=== PATIENT | female | born 1940 | race Caucasian/White ===

== ENCOUNTER → 2017-02-06 | Outpatient (CLI) | payer OTHER, BC ==
--- NOTE | 2017-02-06 09:48 | DIAGNOSTIC IMAGING REPORT ---
CT SCAN OF THE CHEST WITHOUT IV CONTRAST CLINICAL HISTORY: Pulmonary nodule. COMPARISON STUDY: No priors. TECHNIQUE: CT scan of the thorax was performed from the thoracic inlet to the upper abdomen. Images are reviewed in the axial, sagittal, and coronal planes. IV contrast was not administered for this examination as per the referring clinician. CT DOSE: 214.91 mGycm FINDINGS: Thyroid: Imaged portions of the thyroid gland are normal in size and attenuation. Thoracic aorta: There is advanced atherosclerotic calcification of the thoracic aorta, which is normal in caliber and demonstrates standard 3-vessel arch anatomy. Heart: The heart is mildly enlarged and there is a small pericardial effusion. The coronary arteries and aortic valve leaflets are densely calcified. The main pulmonary arteries are dilated suggesting pulmonary artery hypertension. Lungs and pleural spaces: Advanced emphysema is identified. The trachea and central airways are clear. There is segmental atelectasis in the right middle lobe. No airspace consolidation or pleural effusion is identified. No discrete pulmonary nodule is seen. Mediastinum: There is no mediastinal lymphadenopathy. Lili: Not well assessed without IV contrast. Axillae: There is no axillary lymphadenopathy. Upper abdomen: There is a small hiatal hernia. A 1.2 cm left adrenal nodule meets CT criteria for a fat-containing adenoma. There is cortical atrophy of the partially imaged kidneys. Skeletal structures: The skeletal structures are osteopenic. No lytic or blastic bony lesions are seen. There are healed bilateral rib fractures. Degenerative change and hyperkyphosis are noted in the thoracic spine. There is a severe compression deformity of T7. Mild compression deformities are seen involving T9 and T10. IMPRESSION: 1. Advanced emphysema. 2. There is segmental atelectasis identified in the right middle lobe. This is of indeterminate etiology and significance. 3. No discrete pulmonary nodule is identified as clinically queried. 4. There is no airspace consolidation typical for pneumonia or pleural effusion. 5. Cardiomegaly and small pericardial effusion. 5. Additional findings as above. Electronically signed by: Giorgio Whalen M.D. 02/06/2017 9:46 AM Dictated Date/Time: 02/06/2017 9:38 AM
== END | disposition home or self-care (01) ==
LOC: C.CTS 09:26
PROVIDERS: ATTEND Internal Medicine Pulmonary Disease
DX: R91.1 Solitary pulmonary nodule (principal); I51.7 Cardiomegaly

== ENCOUNTER → 2017-02-18 | Outpatient (CLI) | payer OTHER, BC ==
[2017-02-18 12:18] LABS: BASO % 0.2 %; BASO ABS # 0.02 K/uL (0-0.2); COMPLETE YES; EOS % 1.4 %; HEMATOCRIT 41.1 % (37-47); IG% 0.3 %; LYMPH % 9.8 %; LYMPH ABS # 0.93 K/uL (1.2-3.4); MEAN CELL VOLUME 96.5 fL (80-100); MEAN CORPUSCULAR HEMOGLOBIN 29.6 pg (25-34); MEAN CORPUSCULAR HGB CONC 30.7 g/dl (32-36); MEAN PLATELET VOLUME 10.1 fL (7.4-10.4); MONO % 5.4 %; NEUT % 82.9 %; PLATELET COUNT 285 K/uL (130-400); RED BLOOD COUNT 4.26 M/uL (4.2-5.4); WHITE BLOOD COUNT 9.48 K/uL (4.8-10.8)
[2017-02-18 13:39] LABS: ALT/SGPT 28 U/L (12-78); AST/SGOT 33 U/L (15-37); BLOOD UREA NITROGEN 36 mg/dl (7-18); BUN/CREATININE RATIO 27.9 (10-20); CALCIUM 10.2 mg/dl (8.5-10.1); CARBON DIOXIDE 30 mmol/L (21-32); CHLORIDE 102 mmol/L (98-107); CHOLESTEROL 183 mg/dl (0-200); GLUCOSE 131 mg/dl (70-99); POTASSIUM 4.3 mmol/L (3.5-5.1); SODIUM 140 mmol/L (136-145)
[2017-02-18 13:41] LABS: ALB/GLOB RATIO 1.4 (0.9-2); ALKALINE PHOSPHATASE 55 U/L (45-117); CHOLESTEROL/HDL RATIO 2.2; HDL CHOLESTEROL 85 mg/dl; LDL CHOLESTEROL CALCULATED 76 mg/dl; TRIGLYCERIDES 110 mg/dl (0-150); VERY LOW DENSITY LIPOPROT CALC 22 mg/dl
== END | disposition home or self-care (01) ==
LOC: C.LABPBG 10:26
PROVIDERS: ATTEND Nurse Practitioner Adult Health
DX: E78.5 Hyperlipidemia, unspecified (principal); I25.10 Atherosclerotic heart disease of native coronary artery without angina pectoris

== ENCOUNTER → 2017-03-04 | Outpatient (CLI) | payer OTHER, BC | END | disposition home or self-care (01) | LOC: C.LABPBG 11:36 → EDSTATUS 13:35 → C.LABPBG 13:36 → EDSTATUS 13:49 → C.LABPBG 13:49 | PROVIDERS: ATTEND Nurse Practitioner Adult Health | DX: E83.52 Hypercalcemia (principal) ==

== ENCOUNTER → 2017-05-22 | Outpatient (CLI) | payer OTHER, BC ==
[2017-05-22 11:53] LABS: ARTERIAL BLD GAS O2 SATURATION 94.8 % (90-95); ARTERIAL BLOOD GAS BASE EXCESS 3.6 mEq/L (-9-1.8); ARTERIAL BLOOD GAS HCO3 28 mmol/L (19-24); ARTERIAL BLOOD GAS PO2 72 mm/Hg (80-95); ARTERIAL BLOOD GAS pH 7.46 (7.35-7.45)
[2017-05-22 11:54] LABS: ALLEN TEST POS (POS); O2 ADMINISTRATION 3 L
== END | disposition home or self-care (01) ==
LOC: C.LAB 11:13
PROVIDERS: ATTEND Internal Medicine Pulmonary Disease
DX: J44.9 Chronic obstructive pulmonary disease, unspecified (principal)

== ENCOUNTER → 2017-07-20 | Outpatient (CLI) | payer OTHER, BC ==
[2017-07-20 17:18] LABS: BASO % 0.2 %; BASO ABS # 0.02 K/uL (0-0.2); COMPLETE YES; HEMATOCRIT 39.1 % (37-47); IG% 0.4 %; LYMPH % 7.8 %; LYMPH ABS # 0.86 K/uL (1.2-3.4); MEAN CELL VOLUME 95.8 fL (80-100); MEAN CORPUSCULAR HEMOGLOBIN 30.9 pg (25-34); MEAN CORPUSCULAR HGB CONC 32.2 g/dl (32-36); MEAN PLATELET VOLUME 10.3 fL (7.4-10.4); MONO % 5.8 %; NEUT % 84.8 %; PLATELET COUNT 272 K/uL (130-400); RED BLOOD COUNT 4.08 M/uL (4.2-5.4); WHITE BLOOD COUNT 10.98 K/uL (4.8-10.8)
[2017-07-20 17:45] LABS: ALT/SGPT 29 U/L (12-78); BLOOD UREA NITROGEN 36 mg/dl (7-18); BUN/CREATININE RATIO 29.8 (10-20); CALCIUM 9.9 mg/dl (8.5-10.1); CARBON DIOXIDE 30 mmol/L (21-32); CHLORIDE 103 mmol/L (98-107); CHOLESTEROL 190 mg/dl (0-200); CREATININE 1.21 mg/dl (0.60-1.20); GLUCOSE 106 mg/dl (70-99); POTASSIUM 4.1 mmol/L (3.5-5.1); SODIUM 141 mmol/L (136-145); TRIGLYCERIDES 133 mg/dl (0-150); VERY LOW DENSITY LIPOPROT CALC 27 mg/dl
[2017-07-20 17:56] LABS: ALB/GLOB RATIO 1.3 (0.9-2); ALKALINE PHOSPHATASE 53 U/L (45-117); AST/SGOT 33 U/L (15-37); CHOLESTEROL/HDL RATIO 2.6; HDL CHOLESTEROL 74 mg/dl; LDL CHOLESTEROL CALCULATED 89 mg/dl
[2017-07-21 07:09] LABS: ESTIMATED AVERAGE GLUCOSE 117 mg/dl; HA1C FLAG Normal (Normal)
== END | disposition home or self-care (01) ==
LOC: C.LABPBG 11:30
PROVIDERS: ATTEND Family Medicine
DX: E78.5 Hyperlipidemia, unspecified (principal); M81.0 Age-related osteoporosis without current pathological fracture; J96.10 Chronic respiratory failure, unspecified whether with hypoxia or hypercapnia; N18.9 Chronic kidney disease, unspecified; I50.42 Chronic combined systolic (congestive) and diastolic (congestive) heart failure; I25.10 Atherosclerotic heart disease of native coronary artery without angina pectoris

== ENCOUNTER → 2017-09-25 | Outpatient (CLI) | payer OTHER, BC ==
--- NOTE | 2017-09-25 13:49 | DIAGNOSTIC IMAGING REPORT ---
(CHEST) THORAX WITHOUT CT DOSE: 336.24 mGycm HISTORY: Short of breath. Atelectasis. TECHNIQUE: Multiaxial CT images of the chest were performed without contrast. A dose lowering technique was utilized adhering to the principles of ALARA. COMPARISON: Outside hospital chest CTA 04/21/2017. Chest CT 02/06/2017. FINDINGS: There is again noted severe emphysema. No pleural effusions. No pneumothorax. Trace mucoid material within the trachea and mainstem bronchi. A few partially opacified left lower lobe segmental bronchi. No change in the complete collapse/atelectasis of the right middle lobe. The right middle lobe bronchi appear to be patent. Linear density at the lingula is unchanged and favors atelectasis or scarring. No new focal lung consolidations. Old, healed left anterior rib fractures. The heart remains mildly enlarged. Trace pericardial fluid. Calcified plaque within the aortic arch. No mediastinal or hilar lymphadenopathy. The unenhanced visualized liver and spleen are unremarkable. Normal right kidney. Stable thickening of the left adrenal gland. No change in the T5, T7, T9, T10 old compression deformities. IMPRESSION: 1. Interval resolution of the left pleural effusion. 2. No change in the complete collapse of the right middle lobe. An underlying mass cannot be excluded. However, the right middle lobe bronchi appear patent. Therefore, this favors chronic collapse. Bronchoscopy could be used for further evaluation. 3. Advanced emphysema. 4. Stable cardiomegaly. Electronically signed by: Jovan Kramer M.D. 09/25/2017 1:47 PM Dictated Date/Time: 09/25/2017 1:35 PM
== END | disposition home or self-care (01) ==
LOC: C.CTS 13:09
PROVIDERS: ATTEND Internal Medicine Pulmonary Disease
DX: J98.11 Atelectasis (principal); J90 Pleural effusion, not elsewhere classified; J43.9 Emphysema, unspecified; I51.7 Cardiomegaly

== ENCOUNTER → 2017-10-20 | Outpatient (CLI) | payer OTHER, BC ==
[2017-10-20 12:13] LABS: BASO % 0.2 %; BASO ABS # 0.03 K/uL (0-0.2); EOS % 2.1 %; EOS ABS # 0.26 K/uL (0-0.5); HEMATOCRIT 42.3 % (37-47); HEMOGLOBIN 13.3 g/dL (12.0-16.0); IG# 0.06 K/uL (0.00-0.02); LYMPH % 8.9 %; LYMPH ABS # 1.11 K/uL (1.2-3.4); MEAN CELL VOLUME 96.4 fL (80-100); MEAN CORPUSCULAR HEMOGLOBIN 30.3 pg (25-34); MEAN CORPUSCULAR HGB CONC 31.4 g/dl (32-36); MEAN PLATELET VOLUME 10.5 fL (7.4-10.4); MONO % 6.3 %; MONO ABS # 0.79 K/uL (0.11-0.59); NEUT ABS # 10.29 K/uL (1.4-6.5); PLATELET COUNT 357 K/uL (130-400); RED CELL DISTRIBUTION WIDTH CV 14.2 % (11.5-14.5); RED CELL DISTRIBUTION WIDTH SD 50.5 fL (36.4-46.3); WHITE BLOOD COUNT 12.54 K/uL (4.8-10.8)
[2017-10-20 12:24] LABS: PTT PATIENT 22.8 SECONDS (21.0-31.0)
[2017-10-20 12:48] LABS: ALBUMIN 3.9 gm/dl (3.4-5.0); ALT/SGPT 30 U/L (12-78); AST/SGOT 35 U/L (15-37); BLOOD UREA NITROGEN 42 mg/dl (7-18); CALCIUM 10.5 mg/dl (8.5-10.1); CARBON DIOXIDE 32 mmol/L (21-32); GLUCOSE 141 mg/dl (70-99); POTASSIUM 4.3 mmol/L (3.5-5.1); SODIUM 135 mmol/L (136-145)
[2017-10-20 12:51] LABS: ALKALINE PHOSPHATASE 66 U/L (45-117); TOTAL PROTEIN 7.5 gm/dl (6.4-8.2)
== END | disposition home or self-care (01) ==
LOC: C.LABPBG 10:45
PROVIDERS: ATTEND Internal Medicine Pulmonary Disease
DX: J98.11 Atelectasis (principal)

== ENCOUNTER → 2017-11-04 | Outpatient (CLI) | payer OTHER, BC ==
[2017-11-04 14:11] LABS: ALBUMIN 4.4 gm/dl (3.4-5.0); BLOOD UREA NITROGEN 39 mg/dl (7-18); CALCIUM 9.8 mg/dl (8.5-10.1); CARBON DIOXIDE 28 mmol/L (21-32); CREATININE 1.52 mg/dl (0.60-1.20); GLUCOSE 113 mg/dl (70-99); PHOSPHORUS 2.7 mg/dl (2.5-4.9); POTASSIUM 3.9 mmol/L (3.5-5.1); SODIUM 137 mmol/L (136-145)
[2017-11-10 22:20] LABS: ANA SCREEN TC 249X NEGATIVE (NEGATIVE); COMPLEMENT C3 TC 44859W 146 MG/DL (90-180); COMPLEMENT C4 TC 44982E 19 MG/DL (16-47)
== END | disposition home or self-care (01) ==
LOC: C.LAB1850 11:59
PROVIDERS: ATTEND Internal Medicine Nephrology
DX: N28.9 Disorder of kidney and ureter, unspecified (principal); E83.52 Hypercalcemia

== ENCOUNTER → 2017-11-18 | Day surgery (SDC) | payer OTHER, BC ==
[2017-11-18] VITALS (7 sets, daily range): BP systolic 103–149; BP diastolic 57–67; PULSE 89–102; TEMP 36.5–37; O2SAT 93–97; Ht 157.5 cm; Wt 62.0 kg
[~2017-11-18] VITALS: Ht 157.5 cm; Wt 62.0 kg
[~2017-11-18] MED LIST: ASPI81TA28 PO; BISO5TAB3 PO; CLOP1TAB15 PO; EYE VITAMIN PO; FENTANYL CITRATE INJ 50 MCG/1 ML 2 ML VIAL IV ONE; FRS/40 PO; IBAN150T PO; ISOS30TA3 PO; LIDOCAINE 4% INH SOLN 4 ML BTL TOP ONE; LIDOCAINE HCL 2% LOCAL 50ML VIAL INSTIL ONE; LIDOCAINE VISCOUS 2% 100ML TOP ONE; MIDAZOLAM HCL 5 MG/ML 1 ML VIAL IV ONE; MULT-513 PO; PRAV20TA PO; PRED-301 PO; RANI300T2 PO; SYMIN160 INH; TIOT1SPR INH; [UNRECOGNIZED DRUG - OTHER] PO
--- NOTE | 2017-11-18 06:37 | History and Physical ---
History & Physical Date of Service Nov 18, 2017. History & Physical Here for bronchoscopic evaluation of right middle lobe atelectasis. Mariela is a 76-year-old female with past medical history significant for severe COPD (FEV1:49% on 3-4L oxygen supplementation), OBI, CAD and CHF with combined systolic and diastolic dysfunction. Electronic medical records including labs and imaging are reviewed in detail during patient's visit. She was accompanied by her niece Kathy for the visit. Review of Systems Constitutional: no fatigue, weakness, chills, fever or night sweats Head neck: no visual changes, hearing loss Respiratory: No cough, dyspnea on exertion, shortness of breath, sputum or wheezing Cardiac: No chest pain or palpitation Abdomen: No anorexia, nausea, vomiting. No constipation or diarrhea, Musculoskeletal: No joint pain, muscle pain, back pain : No dysuria, hematuria, foamy urine, incontinence, No urinary frequency Endocrine: no polyuria, excessive thirst, heat or cold intolerance Hematological: no petechiae, easy bruising Neurologic: no confusion, weakness, No memory loss, No numbness/tingling, No paralysis, No vertigo Skin: no rash , Psychiatry: no anxiety, depression. Active Problems 1. Acute renal impairment (N28.9) 2. Atelectasis (J98.11) 3. Chronic obstructive pulmonary disease (J44.9) 4. Chronic respiratory failure (J96.10) 5. Chronic rhinitis (J31.0) 6. CKD (chronic kidney disease) (N18.9) 7. COPD, severe (J44.9) 8. GERD (gastroesophageal reflux disease) (K21.9) 9. Hypercalcemia (E83.52) 10. Low back pain (M54.5) 11. Lumbar disc disease (M51.9) 12. Osteoporosis (M81.0) 13. Pulmonary emphysema (J43.9) 14. Pulmonary nodule (R91.1) 15. History of TIA (transient ischemic attack) (V12.54) (Z86.73) 16. Hyperlipidemia (272.4) (E78.5) 17. Coronary heart disease (414.00) (I25.10) 18. Chronic systolic congestive heart failure 19. Chronic diastolic congestive heart failure Past Medical History 1. History of Abnormal drug screen (R89.2) 2. History of Cat scratch (W55.03XA) 3. History of Community acquired pneumonia (J18.9) 4. H/O non-ST elevation myocardial infarction (NSTEMI) (I25.2) 5. History of pneumonia (Z87.01) 6. History of shortness of breath (Z87.898) 7. History of stroke (Z86.73) 8. Pre-operative exam (Z01.818) 9. History of Retained foreign body of foot (M79.5) Surgical History 1. History of Cath Stent Placement 2. 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 She uses wheelchair. Allergies No Known Drug Allergies Current Meds 1. Furosemide 40 MG Oral Tablet; TAKE ONE TABLET BY MOUTH EVERY DAY; 2. Levalbuterol HCl - 1.25 MG/3ML Inhalation Nebulization Solution; USE 1 UNIT DOSE 3. PredniSONE 5 MG Oral Tablet; TAKE 1 TABLET BY MOUTH DAILY 4. ProAir HFA 108 (90 Base) MCG/ACT Inhalation Aerosol Solution; INHALE 2 PUFFS 5. Spiriva HandiHaler 18 MCG Inhalation Capsule; INHALE 1 CAPSULE Daily Requested 6. Symbicort 160-4.5 MCG/ACT Inhalation Aerosol; INHALE 2 PUFFS TWICE DAILY. 7. Ipratropium [place] 0.03 % Nasal Solution; USE 2 SPRAYS IN EACH NOSTRIL 3 8. Bisoprolol Fumarate 5 MG Oral Tablet; TAKE 0.5 TABLET Daily; 9. Isosorbide Mononitrate ER 30 MG Oral Tablet Extended Release 24 Hour; TAKE 1 10. RaNITidine HCl - 300 MG Oral Tablet; TAKE 1 TABLET BY MOUTH TWICE DAILY; 11. Aspirin 81 MG TABS; TAKE 1 TABLET DAILY 12. Multi-Vitamin TABS; TAKE 1 TABLET DAILY 13. Clopidogrel Bisulfate 75 MG Oral Tablet; TAKE 1 TABLET EVERY OTHER DAY 14. Fenofibrate 145 MG Oral Tablet; TAKE 1 TABLET DAILY Requested for: 03Aug2017; 15. Pravastatin Sodium 40 MG Oral Tablet; Take 1 tablet by mouth daily; 16. Hydrocodone-Acetaminophen 5-325 MG Oral Tablet; TAKE 1 TABLET Every twelve Weight 135 lb 9 oz BMI Calculated 24.01 BSA Calculated 1.64 Systolic 118 Diastolic 88 Heart Rate 88 O2 Saturation FiO2 Height Temperature Respiration Pulse Quality Respiration Quality Physical Exam GENERAL: Elderly female, AAA x 3, pleasant, not in any distress. Wearing nasal cannula oxygen. HEENT: Atraumatic, normocephalic. NECK: Supple, no JVD, no carotid bruit appreciated. ENT: No sinus tenderness MOUTH and THROAT: Moist oral mucosa, no oral ulcer or pharyngeal erythema RESPIRATORY: Normal breathing efforts, no accessory muscle use, decreased breath sounds all over. CARDIOVASCULAR: S1, S2 normal, rate rhythm regular. ABDOMEN: Soft, nontender, positive bowel sound. MUSCULOSKELETAL: No CVA tenderness. No joint swelling, erythema or tenderness. Normal range of motion. SKIN: No skin rash EXTREMITY: No lower extremity edema NEURO: No gross focal neurological deficit, speech fluent. PSYCHIATRY: Normal mood and judgment
--- NOTE | 2017-11-18 09:12 | History & Physical Bridge Note ---
H&P Re-Evaluation Bridge Note: I have examined the patient, reviewed the History & Physical and in the interval since the performance of the History & Physical I have noted the following changes of clinical significance: No changes noted
--- NOTE | 2017-11-18 09:13 | Pre Sedation Assessment ---
Pre Sedation Assessment General Date of Sedation: Nov 18, 2017. Vital Signs Past 12 Hours Date Time Temp Pulse Resp B/P (MAP) Pulse Ox O2 Delivery O2 Flow Rate FiO2 11/18/17 08:05 36.5 102 24 149/65 (93) 96 Nasal Cannula 4 Review Cardiovascular: regular rate, rhythm, no edema, no gallop, no JVD, no murmur, normal peripheral pulses Lungs: + decreased breath sounds Pre-Sedation Airway Assessment Smoking Status: Former Smoker Hx of Sleep Apnea: No Hx of difficult intubation: No Short Thick Neck: No Thyro-mental Distance: > 3 Finger Breadths Oral Cavity: Capped Teeth, WNL Mallampati Classification: Class III ASA Classification: Class III NPO Status Date of Last Intake of Fluids: Nov 17, 2017 Time of Last Intake of Fluids: 2199 Date of Last Intake of Solids: Nov 17, 2017 Time of Last Intake of Solids: 2199 Procedure Planning Contraindications for Sedation: None Current Medications Reviewed: Yes Notes The planned sedation has been discussed with the patient. Informed Consent was obtained. I have identified the patient, determined the appropriateness of sedation and have assessed the patient immediately prior to the procedure. All medicine(s) and interventions are by my order.
--- NOTE | 2017-11-18 09:51 | Discharge Instructions ---
Discharge Instructions Date of Service Nov 18, 2017. Admission Reason for Admission: Copd, Pulmonary Nodule, Shortness Of Breath Discharge Discharge Diagnosis / Problem: chronic bronchiectasis with associated atelectasis of the right middle lobe Discharge Goals Goal(s): Diagnostic testing Activity Recommendations Activity Limitations: resume your previous activity . Current Hospital Diet Patient's current hospital diet: Discharge Diet Recommended Diet: Regular Diet Procedures Procedures Performed: Bronchoscopy, bronchial washing of the right middle lobe and conscious sedation Pending Studies Studies pending at discharge: no Medical Emergencies . Who to Call and When: Medical Emergencies: If at any time you feel your situation is an emergency, please call 911 immediately. . Non-Emergent Contact Non-Emergency issues call your: [employer] . . "Provider Documentation" section prepared by Garland Clark. . VTE Core Measure Inpt VTE Proph given/why not?: Other Anticoagulation (Plavix and aspirin)
--- NOTE | 2017-11-18 09:54 | Bronchoscopy Procedure Note ---
Bronchoscopy Procedure Note Procedure: Bronchoscopy, conscious sedation, bronchial lavage of the right middle lobe Consent: Obtained through the patient placed into the chart Pre-procedural diagnosis: Chronic bronchiectasis with associated atelectasis Post-procedural diagnosis: Chronic bronchiectasis with associated atelectasis Start time: 929 End time: 944 Total time: minutes Analgesia: 2% liquid lidocaine: Via nebulizer 4% gel lidocaine: Via right naris 2% liquid lidocaine: Via bronchoscopy Sedation: Versed IV: 2 mg Fentanyl IV: 25 g Procedure: The MideoMe video bronchoscope was used for this procedure and passed down through the right naris Right naris/posterior naris/posterior oropharynx: Anatomically within normal limits Glottis: Anatomically within normal limits Vocal cords: Proper abduction and abduction, anatomically within normal limits Subglottis/trachea/Viridiana: Anatomically within normal limits Right bronchial tree: Right mainstem bronchus: Anatomically within normal limits Right upper lobe: Anatomically within normal limits Bronchus intermedius: Anatomically within normal limits Right middle lobe: Anatomically within normal limits Right lower lobe: Anatomically within normal limits Findings: Diffuse mucous secretions appreciated throughout the right bronchial tree subsegment's Left bronchial tree: Left mainstem bronchus: Anatomically within normal limits Left upper lobe: Anatomically within normal limits Lingula: Anatomically within normal limits Left lower lobe: Anatomically within normal limits Findings: Diffuse mucous secretions appreciated in the left bronchial tree especially in the superior subsegment of the left lower lobe Bronchial alveolar lavage: Right middle lobe EBL: None Complications: None Follow-up: ASU
== END | disposition home or self-care (01) ==
LOC: C.ACU 07:19
PROVIDERS: ATTEND Internal Medicine Critical Care Medicine
DX: J47.9 Bronchiectasis, uncomplicated (principal); J98.11 Atelectasis; J44.9 Chronic obstructive pulmonary disease, unspecified; I25.10 Atherosclerotic heart disease of native coronary artery without angina pectoris; I50.40 Unspecified combined systolic (congestive) and diastolic (congestive) heart failure; K21.9 Gastro-esophageal reflux disease without esophagitis; M81.0 Age-related osteoporosis without current pathological fracture; E78.5 Hyperlipidemia, unspecified; Z86.73 Personal history of transient ischemic attack (TIA), and cerebral infarction without residual deficits; Z87.01 Personal history of pneumonia (recurrent); Z90.89 Acquired absence of other organs; Z80.0 Family history of malignant neoplasm of digestive organs; Z80.3 Family history of malignant neoplasm of breast; Z79.82 Long term (current) use of aspirin; Z99.81 Dependence on supplemental oxygen

== ENCOUNTER → 2017-12-15 | Outpatient (CLI) | payer OTHER, BC ==
[~2017-12-15] MED LIST changes: -FENTANYL CITRATE INJ 50 MCG/1 ML 2 ML VIAL IV ONE; -LIDOCAINE 4% INH SOLN 4 ML BTL TOP ONE; -LIDOCAINE HCL 2% LOCAL 50ML VIAL INSTIL ONE; -LIDOCAINE VISCOUS 2% 100ML TOP ONE; -MIDAZOLAM HCL 5 MG/ML 1 ML VIAL IV ONE
[2017-12-15 17:46] LABS: ALBUMIN 3.6 gm/dl (3.4-5.0); BLOOD UREA NITROGEN 28 mg/dl (7-18); CALCIUM 9.7 mg/dl (8.5-10.1); CARBON DIOXIDE 30 mmol/L (21-32); CREATININE 1.08 mg/dl (0.60-1.20); GLUCOSE 192 mg/dl (70-99); POTASSIUM 4.4 mmol/L (3.5-5.1); SODIUM 138 mmol/L (136-145)
[2017-12-15 17:48] LABS: PHOSPHORUS 3.7 mg/dl (2.5-4.9)
== END | disposition home or self-care (01) ==
LOC: C.LABPBG 13:32
PROVIDERS: ATTEND Internal Medicine Nephrology
DX: N28.9 Disorder of kidney and ureter, unspecified (principal)

== ENCOUNTER → 2018-01-13 | Outpatient (CLI) | payer OTHER, BC ==
--- NOTE | 2018-01-13 08:46 | DIAGNOSTIC IMAGING REPORT ---
TWO VIEW CHEST CLINICAL HISTORY: COPD exacerbation. FINDINGS: PA and lateral chest radiographs are compared to study dated 04/21/2017 and correlated with chest CT dated 09/25/2017. The heart is enlarged and there is atherosclerotic calcification of the thoracic aorta. The pulmonary vasculature is noncongested. Advanced emphysema and chronic interstitial thickening are similar to previous. No airspace consolidation or pleural effusion is identified. There is bibasilar scarring/atelectasis. There is no pneumothorax. The skeletal structures are osteopenic. Degenerative change is seen throughout the thoracic spine. Compression deformities are noted in the midthoracic region. IMPRESSION: Cardiomegaly and advanced emphysema. No acute cardiopulmonary abnormality is identified. Electronically signed by: Giorgio Whalen M.D. 01/13/2018 8:45 AM Dictated Date/Time: 01/13/2018 8:44 AM
== END | disposition home or self-care (01) ==
LOC: C.RAD1850 08:26
PROVIDERS: ATTEND Internal Medicine
DX: J44.1 Chronic obstructive pulmonary disease with (acute) exacerbation (principal); I51.7 Cardiomegaly

== ENCOUNTER → 2018-01-13 | Outpatient (CLI) | payer OTHER, BC | END | disposition home or self-care (01) | LOC: C.LAB 10:53 | PROVIDERS: ATTEND Internal Medicine Pulmonary Disease | DX: J44.1 Chronic obstructive pulmonary disease with (acute) exacerbation (principal) ==

== ENCOUNTER 2018-01-21 10:56 | Inpatient (IN) | payer OTHER, BC ==
[~2018-01-21] VITALS: Ht 157.5 cm; Wt 61.3 kg
[2018-01-21 11:31] LABS: BASO % 0.2 %; BASO ABS # 0.02 K/uL (0-0.2); EOS % 0.6 %; EOS ABS # 0.08 K/uL (0-0.5); HEMATOCRIT 38.8 % (37-47); HEMOGLOBIN 12.3 g/dL (12.0-16.0); IG# 0.03 K/uL (0.00-0.02); LYMPH ABS # 1.48 K/uL (1.2-3.4); MEAN CELL VOLUME 94.2 fL (80-100); MEAN CORPUSCULAR HEMOGLOBIN 29.9 pg (25-34); MEAN CORPUSCULAR HGB CONC 31.7 g/dl (32-36); MEAN PLATELET VOLUME 10.6 fL (7.4-10.4); MONO % 9.2 %; MONO ABS # 1.13 K/uL (0.11-0.59); NEUT % 77.8 %; NEUT ABS # 9.59 K/uL (1.4-6.5); PLATELET COUNT 203 K/uL (130-400); RED CELL DISTRIBUTION WIDTH CV 14.1 % (11.5-14.5); RED CELL DISTRIBUTION WIDTH SD 48.5 fL (36.4-46.3); WHITE BLOOD COUNT 12.33 K/uL (4.8-10.8)
--- NOTE | 2018-01-21 11:37 | DIAGNOSTIC IMAGING REPORT ---
CHEST ONE VIEW PORTABLE HISTORY: Short of breath. COMPARISON: Chest 01/13/2018. FINDINGS: Emphysema. No pneumothorax. The heart remains borderline enlarged. Left basilar linear densities have progressed. No evidence for pulmonary edema. Mild elevation of the left hemidiaphragm is again noted. IMPRESSION: 1. Emphysema. 2. A few linear densities at the left lung base. This favors atelectasis. However, a pneumonia could also have a similar appearance. Electronically signed by: Jovan Kramer M.D. 01/21/2018 11:36 AM Dictated Date/Time: 01/21/2018 11:33 AM
[2018-01-21 11:59] LABS: ALBUMIN 3.7 gm/dl (3.4-5.0); CREATININE 1.01 mg/dl (0.60-1.20); POTASSIUM 3.5 mmol/L (3.5-5.1)
[2018-01-21 12:03] LABS: TOTAL PROTEIN 6.2 gm/dl (6.4-8.2)
[2018-01-21] MEDS ORDERED: LEVAQUIN 750MG / 150ML D5W IV STA (12:12)
[2018-01-21] MEDS ORDERED: MAGNESIUM SULFATE 1GM / D5W 1 GM BAG IV STA (12:12)
[2018-01-21] MEDS ORDERED: SODIUM CHLORIDE 0.9% 500ML 500 ML IV STA (12:12)
[2018-01-21] MEDS ORDERED: ALBUT/IPRATROP 3MG/0.5MG NEB 3 ML VIAL INH ONE ×2 (12:15→15:45)
[2018-01-21 12:28] VITALS: PULSE 101; O2SAT 96
--- NOTE | 2018-01-21 12:32 | EMERGENCY ROOM VISIT NOTE ---
History Report prepared by Zbigniew: Carmelo Novoa Under the Supervision of: Dr. German Davis M.D. First contact with patient: 12:08 Chief Complaint: RESPIRATORY PROBLEMS Stated Complaint: BREATHING DIFFICULTY Nursing Triage Summary: hx copd, saw 2 weeks ago. antibiotic and prednisone. over past week feels worse, has increased home o2 from 2 to 4.5. dyspnic dry cough History of Present Illness The patient is a 77 year old female who presents to the Emergency Room with complaints of worsening shortness of breath for the past two weeks. The patient states that she additionally has a cough and some congestion. She denies any chest pain, fever, nausea, and vomiting. The patient notes that the shortness of breath is worse with exertion, and she states that she is usually on 2.5L of oxygen at home, though she has been on 4L of oxygen recently. She notes that the shortness of breath worsened significantly last night, and she was only able to sleep for around 2 hours. The patient states that when she woke up she used her inhaler, though it did not help her symptoms. She notes that two weeks she was put on antibiotics and a prednisone taper, and she states that she is supposed to finish them tomorrow. The patient notes that the medications have not helped her symptoms. Source of History: patient Onset: two weeks ago Quality: other (shortness of breath) Timing: worsening Modifying Factors (Worsening): exertion Associated Symptoms: + cough, No fevers, No chest pain, No nausea, No vomiting Note: Associated symptoms: Congestion Review of Systems See HPI for pertinent positives and negatives. A total of ten systems were reviewed and were otherwise negative. Past Medical & Surgical Medical Problems: (1) OBI (acute kidney injury) (2) CHF (congestive heart failure) (3) COPD (chronic obstructive pulmonary disease) (4) COPD exacerbation Social History Smoking Status: Former Smoker Marital Status: Occupation Status: retired Current/Historical Medications Scheduled Aspirin (Aspirin Ec), 81 MG PO DAILY Bisoprolol Fumarate (Zebeta), 2.5 MG PO DAILY Budesonide/Formoterol Fumarate (Symbicort 160/4.5 Inhaler ), 2 PUFFS INH BID Clopidogrel (Plavix), 75 MG PO Q2D Furosemide (Lasix), 60 MG PO DAILY Ibandronate Sodium (Boniva), 150 MG PO MONTHLY Isosorbide Mononitrate Ext Rel (Imdur Ext Rel), 30 MG PO QAM Multivitamins/Minerals (Mvi With Minerals), 1 TAB PO DAILY Pravastatin (Pravachol ), 40 MG PO DAILY Prednisone (Prednisone), 5 MG PO DAILY Ranitidine (Zantac), 300 MG PO BID Tiotropium Deport (Spiriva Respimat), 1 PUFF INH DAILY [reds2 eye vitamin], 1 CAP PO BID Allergies Coded Allergies: No Known Allergies (Unverified , 01/21/18) NKDA Physical Exam Vital Signs Date Time Temp Pulse Resp B/P (MAP) Pulse Ox O2 Delivery O2 Flow Rate FiO2 01/21/18 16:10 112 28 98 BiPAP/CPAP 40 01/21/18 16:10 112 98 40 01/21/18 15:32 118 24 115/86 94 Nasal Cannula 4.0 01/21/18 14:31 117 21 01/21/18 14:01 116 24 108/65 01/21/18 13:31 113 20 01/21/18 13:26 111 22 01/21/18 13:19 121/79 01/21/18 12:56 102 38 01/21/18 12:28 101 96 Nasal Cannula 5.0 01/21/18 12:26 105 19 01/21/18 12:01 134/72 01/21/18 11:56 99 28 98 01/21/18 11:26 102 21 97 01/21/18 11:14 103 01/21/18 11:02 97 Nasal Cannula 5.0 01/21/18 11:02 97 Nasal Cannula 5.0 01/21/18 11:01 143/82 01/21/18 11:01 98 Nasal Cannula 5.0 01/21/18 10:59 36.8 104 24 152/113 97 Nasal Cannula 5.0 Physical Exam GENERAL: Awake, alert, dyspneic, in no distress HENT: Normocephalic, atraumatic. Oropharynx unremarkable. EYES: Normal conjunctiva. Sclera non-icteric. NECK: Supple. No nuchal rigidity. FROM. No JVD. RESPIRATORY: Dyspneic and diminished throughout with scattered wheezes. CARDIAC: Regular rate, normal rhythm. Extremities warm and well perfused. Pulses equal. ABDOMEN: Soft, non-distended. No tenderness to palpation. No rebound or guarding. No masses. RECTAL: Deferred. MUSCULOSKELETAL: Chest examination reveals no tenderness. The back is symmetrical on inspection without obvious abnormality. There is no CVA tenderness to palpation. No joint edema. LOWER EXTREMITIES: Calves are equal size bilaterally and non-tender. No edema. No discoloration. NEURO: Normal sensorium. No sensory or motor deficits noted. SKIN: No rash or jaundice noted. Medical Decision & Procedures ER Provider Diagnostic Interpretation: Radiology results as stated below per my review and radiologist interpretation: CHEST ONE VIEW PORTABLE HISTORY: Short of breath. COMPARISON: Chest 01/13/2018. FINDINGS: Emphysema. No pneumothorax. The heart remains borderline enlarged. Left basilar linear densities have progressed. No evidence for pulmonary edema. Mild elevation of the left hemidiaphragm is again noted. IMPRESSION: 1. Emphysema. 2. A few linear densities at the left lung base. This favors atelectasis. However, a pneumonia could also have a similar appearance. Electronically signed by: Jovan Kramer M.D. 01/21/2018 11:36 AM Dictated Date/Time: 01/21/2018 11:33 AM Laboratory Results 01/21/18 10:20 Red Blood Count 4.12, Mean Corpuscular Volume 94.2, Mean Corpuscular Hemoglobin 29.9, Mean Corpuscular Hemoglobin Concent 31.7, Mean Platelet Volume 10.6, Neutrophils (%) (Auto) 77.8, Lymphocytes (%) (Auto) 12.0, Monocytes (%) (Auto) 9.2, Eosinophils (%) (Auto) 0.6, Basophils (%) (Auto) 0.2, Neutrophils # (Auto) 9.59, Lymphocytes # (Auto) 1.48, Monocytes # (Auto) 1.13, Eosinophils # (Auto) 0.08, Basophils # (Auto) 0.02 01/21/18 10:20 Test 01/21/18 10:20 01/21/18 11:24 01/21/18 13:03 01/21/18 14:10 White Blood Count 12.33 K/uL (4.8-10.8) Red Blood Count 4.12 M/uL (4.2-5.4) Hemoglobin 12.3 g/dL (12.0-16.0) Hematocrit 38.8 % (37-47) Mean Corpuscular Volume 94.2 fL (80-100) Mean Corpuscular Hemoglobin 29.9 pg (25-34) Mean Corpuscular Hemoglobin Concent 31.7 g/dl (32-36) Platelet Count 203 K/uL (130-400) Mean Platelet Volume 10.6 fL (7.4-10.4) Neutrophils (%) (Auto) 77.8 % Lymphocytes (%) (Auto) 12.0 % Monocytes (%) (Auto) 9.2 % Eosinophils (%) (Auto) 0.6 % Basophils (%) (Auto) 0.2 % Neutrophils # (Auto) 9.59 K/uL (1.4-6.5) Lymphocytes # (Auto) 1.48 K/uL (1.2-3.4) Monocytes # (Auto) 1.13 K/uL (0.11-0.59) Eosinophils # (Auto) 0.08 K/uL (0-0.5) Basophils # (Auto) 0.02 K/uL (0-0.2) RDW Standard Deviation 48.5 fL (36.4-46.3) RDW Coefficient of Variation 14.1 % (11.5-14.5) Immature Granulocyte % (Auto) 0.2 % Immature Granulocyte # (Auto) 0.03 K/uL (0.00-0.02) Prothrombin Time 10.5 SECONDS (9.0-12.0) Prothromb Time International Ratio 1.0 (0.9-1.1) Activated Partial Thromboplast Time 22.0 SECONDS (21.0-31.0) Partial Thromboplastin Ratio 0.8 Anion Gap 9.0 mmol/L (3-11) Est Creatinine Clear Calc Drug Dose 40.4 ml/min Estimated GFR () 61.3 Estimated GFR (Non- 52.9 BUN/Creatinine Ratio 30.6 (10-20) Calcium Level 9.0 mg/dl (8.5-10.1) Total Bilirubin 0.9 mg/dl (0.2-1) Aspartate Amino Transf (AST/SGOT) 30 U/L (15-37) Alanine Aminotransferase (ALT/SGPT) 40 U/L (12-78) Alkaline Phosphatase 64 U/L (45-117) Total Protein 6.2 gm/dl (6.4-8.2) Albumin 3.7 gm/dl (3.4-5.0) Globulin 2.5 gm/dl (2.5-4.0) Albumin/Globulin Ratio 1.5 (0.9-2) Bedside Troponin I 0.030 ng/ml (0-0.045) Venous Blood pH 7.41 (7.36-7.41) Venous Blood Partial Pressure CO2 45 mmHg (38.0-50.0) Venous Blood Partial Pressure O2 46 mmHg Venous Blood HCO3 28 mmol/L Venous Blood Oxygen Saturation 78.8 % Venous Blood Base Excess 3.2 mEq/L Lactic Acid Level 1.1 mmol/L (0.4-2.0) Pro-B-Type Natriuretic Peptide 8145 pg/ml (0-1800) Influenza Type A (RT-PCR) Neg for Influ A (NEG) Influenza Type B (RT-PCR) Neg for Influ B (NEG) Test 01/21/18 15:05 D-Dimer 300 ug/L FEU (0-500) Laboratory results reviewed by me Medications Administered Medications (Trade) Dose Ordered Sig/Marialuisa Route Start Time Stop Time Status Last Admin Dose Admin Albuterol/ Ipratropium (Duoneb) 12 ml ONE ONCE INH 01/21/18 12:15 01/21/18 12:18 DC 01/21/18 12:28 12 ML Magnesium Sulfate (Magnesium Sulfate 1gm / D5W) 2 gm NOW STAT IV 01/21/18 12:12 01/21/18 12:18 DC 01/21/18 12:34 2 GM Sodium Chloride 500 ml @ 999 mls/hr Q31M STAT IV 01/21/18 12:12 01/21/18 12:42 DC 01/21/18 12:35 999 MLS/HR Levofloxacin (Levaquin / D5W) 750 mg NOW STAT IV 01/21/18 12:12 01/21/18 12:18 DC 01/21/18 13:16 750 MG Albuterol/ Ipratropium (Duoneb) 12 ml ONE ONCE INH 01/21/18 15:45 01/21/18 15:46 DC 01/21/18 16:10 12 ML ECG Per My Interpretation Indication: SOB/dyspnea Rate (beats per minute): 100 Rhythm: normal sinus Findings: LBBB, no acute ischemic change, left axis deviation, other (No Sgarbossa Criteria) ED Course 1208: The patient was evaluated in room C3. A complete history and physical exam was performed. 1437: I discussed the patient's case with Dr. Rosales, Pulmonology, and he said that the patient has been worsening for a while. He thinks that it is worth dong a CTA, and the patient had one earlier in the year that was negative, but if we cannot convince her to stay in the hospital, then she should follow up closely as an outpatient. 1549: I discussed the patient with Dr. Sanchez - [facility] Hospitalist - he will evaluate the patient for further treatment. Medical Decision I reviewed the patient's past medical history, medications, and the nursing notes as described above. Differential diagnosis: Etiologies such as infections, reactive airway disease, pneumonia, pneumothorax , COPD, CHF, cardiac ischemia, pulmonary embolism, musculoskeletal, gastrointestinal, as well as others were entertained. The patient is a 77 y/o woman with a pmhx of COPD/emphysema on home O2 2-3L NC who presents to the emergency department with worsening sob over the past 2 weeks with increased O2 requirement to 4-5L per HPI. Patient given Solumedrol and duobneb by EMS. On arrival the patient appears moderately dyspneic but in NAD, AF. Tachypneic to 30s and VS otherwise stable. EKG with LBBB with no Sgarbossa criteria. No prior EKGs for comparion. CXR with question atelectasis vs infiltrate. WBC 12 albeit in the setting of recent steroid taper. Given Levaquin for PNA. Trop negative. BNP 8000 although no evidence of pulmonary edema. 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 D-dimer negative. Patient with persistent dyspnea despite continuous nebs. Thus, repeat continuous duoneb and placed on Bipap for WOB. Patient agreeable for admission. Case d/w Dr. Sanchez, [facility] hospitalist, who will evaluate the patient for admission. Medication Reconcilliation Current Medication List: was personally reviewed by me Blood Pressure Screening Patient's blood pressure: Normal blood pressure Consults Time Called: 1424 Consulting Physician: Dr. Rosales, Pulmonology Returned Call: [phone] I discussed the patient's case with Dr. Rosales, Pulmonology, and he said that the patient has been worsening for a while. He thinks that it is worth dong a CTA, and the patient had one earlier in the year that was negative, but if we cannot convince her to stay in the hospital, then she should follow up closely as an outpatient. Additional Consults: Time Called: 1548 Consulted Physician: Dr. Daniel [facility] Hospitalist Returned Call: [phone] Additional Comments: I discussed the patient with Dr. Daniel [facility] Hospitalist - He will evaluate the patient for further treatment. Impression Primary Impression: COPD exacerbation Additional Impression: Pneumonia Scribe Attestation The scribe's documentation has been prepared under my direction and personally reviewed by me in its entirety. I confirm that the note above accurately reflects all work, treatment, procedures, and medical decision making performed by me. Departure Information Dispostion Being Evaluated By Hospitalist Referrals Marly Boateng DO (PCP) Patient Instructions My [facility] Problem Qualifiers
[2018-01-21 15:12] LABS: INFLUENZA A PCR Neg for Influ A (NEG); INFLUENZA B PCR Neg for Influ B (NEG)
[2018-01-21 16:10] VITALS: PULSE 112; O2SAT 98
[2018-01-21] MEDS ORDERED: ALUMINUM/MAGNESIUM/SIMETH (MAALOX MAX) 30 ML UDC PO PRN (16:15)
[2018-01-21] MEDS ORDERED: ONDANSETRON INJ 2 MG/ML 2 ML VIAL IV PRN (16:15)
[2018-01-21] MEDS ORDERED: NITROGLYCERIN 0.4 MG SL PER TAB CHARGE SL PRN (16:15)
[2018-01-21] MEDS ORDERED: ALBUTEROL 0.083% NEBU SOLN 3 ML VIAL INH PRN (16:15)
[2018-01-21] MEDS ORDERED: POLYETHYLENE (MIRALAX) 17 GM PACK PO PRN (16:15)
[2018-01-21] MEDS ORDERED: MAGNESIUM HYDROXIDE SUSP 30 ML UDC PO PRN (16:15)
[2018-01-21] MEDS ORDERED: MoRPHine SULFATE 2 MG/ML CARP IV PRN (16:15)
[2018-01-21] MEDS ORDERED: ACETAMINOPHEN 325 MG TAB PO PRN (16:15)
--- NOTE | 2018-01-21 17:23 | History and Physical ---
History & Physical Date & Time of Service: Jan 21, 2018 at 16:58 Chief Complaint: Breathing Difficulty Primary Care Physician: Marly Boateng DO History of Present Illness Source: patient, family, hospital records 77 y/o F CAD, combined CHF, TIA, advanced COPD - 3L 02. The pt has been progressively SOB x 2 weeks with gradually increasing 02 requirements. She presented to the ER in mild respiratory distress and initially required BiPAP to correct hypoxia. She denies an acute productive cough, chest pain, orthopnea. She is SOB with minimal exertion. 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 3) Osteoporosis 4) History of TIA 5) History of OBI 6) Advanced COPD - FEV1 49% Surgical: Tonsillectomy Family History Noncontributory Social History Smoking Status: Former Smoker Marital Status: Occupational Status: retired Allergies Coded Allergies: No Known Allergies (Unverified , 01/21/18) NKDA Home Medications Scheduled Aspirin (Aspirin Ec), 81 MG PO DAILY Bisoprolol Fumarate (Zebeta), 2.5 MG PO DAILY Budesonide/Formoterol Fumarate (Symbicort 160/4.5 Inhaler ), 2 PUFFS INH BID Clopidogrel (Plavix), 75 MG PO Q2D Furosemide (Lasix), 60 MG PO DAILY Ibandronate Sodium (Boniva), 150 MG PO MONTHLY Isosorbide Mononitrate Ext Rel (Imdur Ext Rel), 30 MG PO QAM Multivitamins/Minerals (Mvi With Minerals), 1 TAB PO DAILY Pravastatin (Pravachol ), 40 MG PO DAILY Prednisone (Prednisone), 5 MG PO DAILY Ranitidine (Zantac), 300 MG PO BID Tiotropium [place] (Spiriva Respimat), 1 PUFF INH DAILY [reds2 eye vitamin], 1 CAP PO BID Review of Systems Constitutional: No fever, No chills, No sweats Eyes: No worsening of vision ENT: No hearing loss, No nasal symptoms Respiratory: + cough, + shortness of breath, + dyspnea on exertion Cardiovascular: No chest pain, No orthopnea, No PND Abdomen: No pain, No nausea, No vomiting Musculoskeletal: No joint pain Genitourinary - Female: No dysuria, No urinary frequency Neurologic: No memory loss, No weakness Psychiatric: No depression symptoms Endocrine: No fatigue Hematologic / Lymphatic: No abnormal bleeding/bruising Integumentary: No rash Physical Exam Vital Signs Date Time Temp Pulse Resp B/P (MAP) Pulse Ox O2 Delivery O2 Flow Rate FiO2 01/21/18 16:10 112 28 98 BiPAP/CPAP 40 01/21/18 16:10 112 98 40 01/21/18 15:32 118 24 115/86 94 Nasal Cannula 4.0 01/21/18 14:31 117 21 01/21/18 14:01 116 24 108/65 01/21/18 13:31 113 20 01/21/18 13:26 111 22 01/21/18 13:19 121/79 01/21/18 12:56 102 38 01/21/18 12:28 101 96 Nasal Cannula 5.0 01/21/18 12:26 105 19 01/21/18 12:01 134/72 01/21/18 11:56 99 28 98 01/21/18 11:26 102 21 97 01/21/18 11:14 103 01/21/18 11:02 97 Nasal Cannula 5.0 01/21/18 11:02 97 Nasal Cannula 5.0 01/21/18 11:01 143/82 01/21/18 11:01 98 Nasal Cannula 5.0 01/21/18 10:59 36.8 104 24 152/113 97 Nasal Cannula 5.0 General Appearance: WD/WN, no apparent distress, + pertinent finding (Elderly female - on BiPAP - appears comfortable and completing sentences) Head: normocephalic ENT: normal ENT inspection Neck: supple, no JVD Respiratory/Chest: chest non-tender, + pertinent finding (Very poor air movement - rediced air at bases - no crackles or wheezing) Cardiovascular: no murmur, + tachycardia Abdomen/GI: normal bowel sounds, non tender, soft Back: normal inspection, no CVA tenderness Extremities/Musculoskelatal: normal inspection Neurologic/Psych: gis professor II-XII nml as tested, no motor/sensory deficits, alert, oriented x 3 Skin: normal color Diagnostics Laboratory Results Results Past 24 Hours Test 01/21/18 10:20 01/21/18 11:24 01/21/18 13:03 01/21/18 14:10 Range/Units White Blood Count 12.33 4.8-10.8 K/uL Red Blood Count 4.12 4.2-5.4 M/uL Hemoglobin 12.3 12.0-16.0 g/dL Hematocrit 38.8 37-47 % Mean Corpuscular Volume 94.2 80-100 fL Mean Corpuscular Hemoglobin 29.9 25-34 pg Mean Corpuscular Hemoglobin Concent 31.7 32-36 g/dl Platelet Count 203 130-400 K/uL Mean Platelet Volume 10.6 7.4-10.4 fL Neutrophils (%) (Auto) 77.8 % Lymphocytes (%) (Auto) 12.0 % Monocytes (%) (Auto) 9.2 % Eosinophils (%) (Auto) 0.6 % Basophils (%) (Auto) 0.2 % Neutrophils # (Auto) 9.59 1.4-6.5 K/uL Lymphocytes # (Auto) 1.48 1.2-3.4 K/uL Monocytes # (Auto) 1.13 0.11-0.59 K/uL Eosinophils # (Auto) 0.08 0-0.5 K/uL Basophils # (Auto) 0.02 0-0.2 K/uL RDW Standard Deviation 48.5 36.4-46.3 fL RDW Coefficient of Variation 14.1 11.5-14.5 % Immature Granulocyte % (Auto) 0.2 % Immature Granulocyte # (Auto) 0.03 0.00-0.02 K/uL Prothrombin Time 10.5 9.0-12.0 SECONDS Prothromb Time International Ratio 1.0 0.9-1.1 Activated Partial Thromboplast Time 22.0 21.0-31.0 SECONDS Partial Thromboplastin Ratio 0.8 Sodium Level 139 136-145 mmol/L Potassium Level 3.5 3.5-5.1 mmol/L Chloride Level 103 98-107 mmol/L Carbon Dioxide Level 27 21-32 mmol/L Anion Gap 9.0 3-11 mmol/L Blood Urea Nitrogen 31 7-18 mg/dl Creatinine 1.01 0.60-1.20 mg/dl Est Creatinine Clear Calc Drug Dose 40.4 ml/min Estimated GFR () 61.3 Estimated GFR (Non- 52.9 BUN/Creatinine Ratio 30.6 10-20 Random Glucose 132 70-99 mg/dl Calcium Level 9.0 8.5-10.1 mg/dl Total Bilirubin 0.9 0.2-1 mg/dl Aspartate Amino Transf (AST/SGOT) 30 15-37 U/L Alanine Aminotransferase (ALT/SGPT) 40 12-78 U/L Alkaline Phosphatase 64 45-117 U/L Total Protein 6.2 6.4-8.2 gm/dl Albumin 3.7 3.4-5.0 gm/dl Globulin 2.5 2.5-4.0 gm/dl Albumin/Globulin Ratio 1.5 0.9-2 Bedside Troponin I 0.030 0-0.045 ng/ml Venous Blood pH 7.41 7.36-7.41 Venous Blood Partial Pressure CO2 45 38.0-50.0 mmHg Venous Blood Partial Pressure O2 46 mmHg Venous Blood HCO3 28 mmol/L Venous Blood Oxygen Saturation 78.8 % Venous Blood Base Excess 3.2 mEq/L Lactic Acid Level 1.1 0.4-2.0 mmol/L Pro-B-Type Natriuretic Peptide 8145 0-1800 pg/ml Influenza Type A (RT-PCR) Neg for Influ A NEG Influenza Type B (RT-PCR) Neg for Influ B NEG Test 01/21/18 15:05 Range/Units D-Dimer 300 0-500 ug/L FEU Microbiology Results 01/21/18 Blood Culture, Received Pending 01/21/18 Blood Culture, Received Pending Diagnostic Radiology CXR: 1. Emphysema. 2. A few linear densities at the left lung base. This favors atelectasis. However, a pneumonia could also have a similar appearance. EKG Sinus, L axis, L bundle Impression Assessment and Plan 77 y/o F CAD, combined CHF, TIA, advanced COPD - 3L 02. The pt has been progressively SOB x 2 weeks with gradually increasing 02 requirements. She presented to the ER in mild respiratory distress and initially required BiPAP to correct hypoxia. She denies an acute productive cough, chest pain, orthopnea. She is SOB with minimal exertion. 1) COPD exacerbation - questionable PNM on CXR - less likely clinically - pt placed on Abx, nebs, steroids, 02 - BiPAP as needed. She is pending a Ddimer - we will consider a CTA if (+). 2) CHF - no current evidence of volume overload, Cont Lasix, statin, Imdur. 3) CAD - EKG shows a LBBB - there is none for comparison and this is not mentioned in the record. This may be rate related. She does not c/o CP and initial trop is negative. She is admitted to telemetry regardless and we will trend her trop. Cont ASA, Plavix, Statin, Imdur. 4) History of TIA - Cont ASA, Plavix and Statin Full code - Lovenox prophylaxis Total time for this admit including review of labs, meds, imaging records - discussion with pt and ER attending - 39 min Resuscitation Status VTE Prophylaxis Will order VTE Prophylaxis: Yes
[2018-01-21 18:16] VITALS: BP 148/71; PULSE 132; TEMP 36.5; O2SAT 95; Ht 157.5 cm; Wt 61.3 kg
[2018-01-21] MEDS: METHYLPREDNISOLONE IV 40 MG in SYRINGE 0 ML IV SCH (18:47)
[2018-01-21 19:18] VITALS: PULSE 121; O2SAT 96
[2018-01-21] MEDS: ALBUT/IPRATROP 3MG/0.5MG NEB 3 ML VIAL INH SCH (19:18)
[2018-01-21] MEDS: RANITIDINE HCL 150 MG TAB PO SCH (20:21)
[2018-01-21] MEDS: ENOXAPARIN 40 MG/0.4 ML SYR SC SCH (20:21)
[2018-01-22] VITALS (13 sets, daily range): BP systolic 118–136; BP diastolic 65–84; PULSE 89–115; TEMP 36.3–37; O2SAT 95–98
[2018-01-22] MEDS: METHYLPREDNISOLONE IV 40 MG in SYRINGE 0 ML IV SCH ×4 (01:04→19:19)
[2018-01-22] MEDS: ALBUT/IPRATROP 3MG/0.5MG NEB 3 ML VIAL INH SCH ×4 (02:10→19:30)
[2018-01-22 05:04] LABS: HEMATOCRIT 35.8 % (37-47); HEMOGLOBIN 11.3 g/dL (12.0-16.0); MEAN CELL VOLUME 93.2 fL (80-100); MEAN CORPUSCULAR HEMOGLOBIN 29.4 pg (25-34); MEAN CORPUSCULAR HGB CONC 31.6 g/dl (32-36); MEAN PLATELET VOLUME 10.4 fL (7.4-10.4); PLATELET COUNT 155 K/uL (130-400); RED CELL DISTRIBUTION WIDTH SD 48.1 fL (36.4-46.3); WHITE BLOOD COUNT 5.36 K/uL (4.8-10.8)
[2018-01-22 05:27] LABS: CALCIUM 8.9 mg/dl (8.5-10.1); CREATININE 1.06 mg/dl (0.60-1.20); POTASSIUM 4.2 mmol/L (3.5-5.1)
--- NOTE | 2018-01-22 08:10 | Clinical Documentation Query ---
CLINICAL DOCUMENTATION QUERY Dr. FONTENOT, In your clinical opinion is this patient being managed for: (x ) Acute and chronic hypoxic respiratory failure ( ) Chronic hypoxic respiratory failure ( ) Not Agree ( ) Other explanation of clinical findings (Please Explain) ( ) Unable to determine (Please Define) ( ) Need to Discuss The medical record reflects the following clinical findings, treatment, and risk factors. Clinical Indicators: 77 yo female presenting with increasing dyspnea and O2 requirements over the past 2 weeks. EMS administered solumedrol and duonebs as well as increased O2 support. Pt had increased her 2-3 L O2 support to 4-5 L over this 2 week period. Presented dyspneic with RR of 24-38 requiring BIPAP short term. Treatment: IV levaquin, O2 support/BIPAP, duonebs, tele, IV solumedrol Risk Factors: advanced COPD, former smoker, chronic systolic and diastolic CHF Please clarify and document your clinical opinion in the progress notes and discharge summary. Terms such as "probable", "suspected", "likely", "questionable", "possible", or "still to be ruled out" are acceptable. IF IN AGREEMENT, YOU MUST DOCUMENT ABOVE DIAGNOSTIC STATEMENT IN DAILY PROGRESS NOTES AND DISCHARGE SUMMARY. This document is not part of the patient's record. Thank You, Lucinda Denny RN [phone]
[2018-01-22] MEDS: ASPIRIN 81 MG ECTAB PO SCH (08:11)
[2018-01-22] MEDS: ISOSORBIDE MONONITRATE 30 MG TABCR PO SCH (08:11)
[2018-01-22] MEDS: PRAVASTATIN SOD 40 MG TAB PO SCH (08:11)
[2018-01-22] MEDS: RANITIDINE HCL 150 MG TAB PO SCH ×2 (08:11→21:10)
[2018-01-22] MEDS: CLOPIDOGREL BISULFATE 75 MG TAB PO SCH ×2 (08:11→08:16)
[2018-01-22] MEDS: FUROSEMIDE 20 MG TAB PO SCH (08:12)
[2018-01-22] MEDS ORDERED: METOPROLOL TARTRATE 25 MG TAB PO SCH (09:00)
[2018-01-22] MEDS ORDERED: LORAZEPAM 0.5 MG TAB PO PRN (10:30)
[2018-01-22] MEDS ORDERED: NURSING VERBAL MED ORDER ONE ×2 (10:30→18:45)
[2018-01-22] MEDS: LEVOFLOXACIN / D5W 250 MG in PREMIXED IN D5W 50 ML IV SCH (12:09)
--- NOTE | 2018-01-22 14:27 | Progress Note ---
Subjective Date of Service: Jan 22, 2018. Subjective Pt evaluation today including: conversation w/ patient, conversation w/ family , physical exam, lab review, review of inpatient medication list Pain: no pain PO Intake: adequate Voiding: no voiding problems breathing is slightly improved per patient no real cough, had more of a cough yesterday productive of sputum she requested that her Plavix be every other day as it is at home concerned about not getting her Symbicort and Spiriva, explained that Duoneb provides same treatment reviewed labs, CBC and BMP stable, normal Problem List Medical Problems: (1) Pneumonia Status: Acute Review of Systems Constitutional: + weakness, + fatigue Respiratory: + cough, + shortness of breath, + dyspnea on exertion Neurologic: + weakness All Other Systems: Reviewed and Negative Medications Current Inpatient Medications Medications (Trade) Dose Ordered Sig/Marialuisa Route Start Time Stop Time Status Last Admin Dose Admin Aspirin (Ecotrin Tab) 81 mg DAILY PO 01/22/18 09:00 02/21/18 08:59 01/22/18 08:11 81 MG Furosemide (Lasix Tab) 60 mg DAILY PO 01/22/18 09:00 02/21/18 08:59 01/22/18 08:12 60 MG Isosorbide Mononitrate (Imdur Ext Rel Tab) 30 mg QAM PO 01/22/18 09:00 02/21/18 08:59 01/22/18 08:11 30 MG Pravastatin Sodium (Pravachol Tab) 40 mg DAILY PO 01/22/18 09:00 02/21/18 08:59 01/22/18 08:11 40 MG Prednisone (PredniSONE TAB) 5 mg DAILY PO 01/22/18 09:00 02/21/18 08:59 Metoprolol Tartrate (Lopressor Tab) 25 mg BID PO 01/22/18 09:00 02/21/18 08:59 01/22/18 08:11 25 MG Ranitidine HCl (zANTac TAB) 300 mg BID PO 01/21/18 21:00 02/20/18 20:59 01/22/18 08:11 300 MG Enoxaparin Sodium (Lovenox Inj) 40 mg Q24H SC 01/21/18 21:00 02/20/18 20:59 01/21/18 20:21 40 MG Acetaminophen (Tylenol Tab) 650 mg Q4H PRN PO 01/21/18 16:15 02/20/18 16:14 Al Hydrox/Mg Hydrox/Simethicone (Maalox Max Susp) 15 ml Q4H PRN PO 01/21/18 16:15 02/20/18 16:14 Magnesium Hydroxide (Milk Of Magnesia Susp) 30 ml Q12H PRN PO 01/21/18 16:15 02/20/18 16:14 Ondansetron HCl (Zofran Inj) 4 mg Q6H PRN IV 01/21/18 16:15 02/20/18 16:14 Nitroglycerin (Nitrostat Tab) 0.4 mg UD PRN SL 01/21/18 16:15 02/20/18 16:14 Morphine Sulfate (MoRPHine SULFATE INJ) 2 mg Q30M PRN IV 01/21/18 16:15 02/04/18 16:14 Polyethylene (Miralax Powder Packet) 17 gm DAILY PRN PO 01/21/18 16:15 02/20/18 16:14 Albuterol/ Ipratropium (Duoneb) 3 ml Q6R INH 01/21/18 21:00 02/20/18 20:59 01/22/18 07:26 3 ML Albuterol Sulfate (Ventolin 0.083% 2.5MG/3ML Neb) 2.5 mg Q4H PRN INH 01/21/18 16:15 02/20/18 16:14 Levofloxacin 250 mg/Prmx 50 ml @ 100 mls/hr Q24H IV 01/22/18 11:00 01/27/18 11:29 01/22/18 12:09 100 MLS/HR Methylprednisolone Sodium Succinate 40 mg/Syringe 0.64 ml @ 1.5 mls/min Q6H IV 01/21/18 19:00 02/20/18 16:14 01/22/18 12:09 1.5 MLS/MIN Lorazepam (Ativan Tab) 0.5 mg HS PRN PO 01/22/18 10:30 02/21/18 10:29 Clopidogrel Bisulfate (plAVix TAB) 75 mg Q2D@0900 PO 01/23/18 09:00 02/22/18 08:59 Objective Vital Signs Date Time Temp Pulse Resp B/P (MAP) Pulse Ox O2 Delivery O2 Flow Rate FiO2 01/22/18 12:00 Nasal Cannula 4.0 Humidified Air 01/22/18 10:31 36.3 89 21 123/69 (87) 98 Nasal Cannula 4.0 01/22/18 08:00 Nasal Cannula 4.0 Humidified Air 01/22/18 08:00 36.8 114 20 132/84 (100) 97 Nasal Cannula 4.0 01/22/18 07:26 115 22 97 Nasal Cannula 4.0 01/22/18 04:00 97 Nasal Cannula 4.0 Humidified Air 01/22/18 03:12 37.0 113 20 118/65 (82) 97 Nasal Cannula 4.0 01/22/18 02:10 109 24 95 Nasal Cannula 4.0 01/22/18 00:00 95 Nasal Cannula 4.0 Humidified Air 01/22/18 00:00 36.7 110 28 133/73 (93) 95 Nasal Cannula 4.0 Humidified Oxygen 01/21/18 20:00 Nasal Cannula 4.0 01/21/18 19:18 121 22 96 Nasal Cannula 4.0 01/21/18 18:16 36.5 132 26 148/71 95 Nasal Cannula 4.0 01/21/18 17:49 132 20 122/82 96 01/21/18 17:03 124 18 119/92 96 BiPAP 01/21/18 16:10 112 28 98 BiPAP/CPAP 40 01/21/18 16:10 112 98 40 01/21/18 15:32 118 24 115/86 94 Nasal Cannula 4.0 01/21/18 14:31 117 21 Physical Exam General Appearance: WD/WN, no apparent distress Eyes: normal inspection, EOMI, sclerae normal ENT: normal ENT inspection, hearing grossly normal, pharynx normal Neck: supple, no adenopathy, no JVD, trachea midline Respiratory/Chest: chest non-tender, no respiratory distress, no accessory muscle use, + decreased breath sounds (markedly decreased sounds in all lung palacios, no wheezing, no distress) Cardiovascular: no edema, no gallop, no JVD, no murmur, + tachycardia (sinus) Abdomen: normal bowel sounds, non tender, soft, no organomegaly Extremities: normal range of motion, non-tender, normal inspection, no pedal edema, no calf tenderness 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, no motor/sensory deficits, alert, normal mood/affect, oriented x 3 Skin: normal color, warm/dry, no rash Laboratory Results Last 24 Hours Test 01/21/18 15:05 01/21/18 22:48 01/22/18 04:50 D-Dimer 300 ug/L FEU Troponin I 0.044 ng/ml 0.041 ng/ml White Blood Count 5.36 K/uL Red Blood Count 3.84 M/uL Hemoglobin 11.3 g/dL Hematocrit 35.8 % Mean Corpuscular Volume 93.2 fL Mean Corpuscular Hemoglobin 29.4 pg Mean Corpuscular Hemoglobin Concent 31.6 g/dl RDW Standard Deviation 48.1 fL RDW Coefficient of Variation 14.0 % Platelet Count 155 K/uL Mean Platelet Volume 10.4 fL Sodium Level 138 mmol/L Potassium Level 4.2 mmol/L Chloride Level 105 mmol/L Carbon Dioxide Level 28 mmol/L Anion Gap 5.0 mmol/L Blood Urea Nitrogen 26 mg/dl Creatinine 1.06 mg/dl Est Creatinine Clear Calc Drug Dose 38.4 ml/min Estimated GFR () 57.8 Estimated GFR (Non- 49.9 BUN/Creatinine Ratio 24.3 Random Glucose 161 mg/dl Calcium Level 8.9 mg/dl Magnesium Level 2.4 mg/dl Assessment and Plan 77 y/o F CAD, combined CHF, TIA, advanced COPD - 3L 02. The pt has been progressively SOB x 2 weeks with gradually increasing 02 requirements. She presented to the ER in mild respiratory distress and initially required BiPAP to correct hypoxia. She denies an acute productive cough, chest pain, orthopnea. She is SOB with minimal exertion. - COPD exacerbation responding slowly to treatment, continue Solumedrol 40 q6, Levaquin, Duoneb continue to hold Spiriva and Symbicort while in acute exacerbation - Acute and chronic hypoxia currently stable on 4L NC, wears 3L at baseline required BIPAP on admission but quickly weaned off - Sinus tachycardia due to albuterol nebs, continue to monitor - Chronic diastolic and systolic HF examines euvolemic, continue Lasix, Imdur, Metoprolol - CAD: no chest pain, EKG with LBB, continue aspirin, Plavix, statin, Imdur, metoprolol - Insomnia: requesting sleep aide discussed danger of giving something too sedating with respiratory failure will try Ativan 0.5mg tonight full code Lovenox for prophylaxis
[2018-01-22] MEDS: ENOXAPARIN 40 MG/0.4 ML SYR SC SCH (21:08)
[2018-01-23] VITALS (13 sets, daily range): BP systolic 114–138; BP diastolic 66–84; PULSE 93–115; TEMP 36.4–36.7; O2SAT 92–99
[2018-01-23] MEDS: METHYLPREDNISOLONE IV 40 MG in SYRINGE 0 ML IV SCH ×2 (01:50→07:00)
[2018-01-23] MEDS: ALBUT/IPRATROP 3MG/0.5MG NEB 3 ML VIAL INH SCH ×4 (02:02→21:00)
[2018-01-23] MEDS: BISOPROLOL 5 MG PO SCH (08:05)
[2018-01-23] MEDS: FUROSEMIDE 20 MG TAB PO SCH (08:07)
[2018-01-23] MEDS: PRAVASTATIN SOD 40 MG TAB PO SCH (08:07)
[2018-01-23] MEDS: ISOSORBIDE MONONITRATE 30 MG TABCR PO SCH (08:07)
[2018-01-23] MEDS: RANITIDINE HCL 150 MG TAB PO SCH ×2 (08:08→21:05)
[2018-01-23] MEDS: CLOPIDOGREL BISULFATE 75 MG TAB PO SCH (08:09)
[2018-01-23] MEDS: ASPIRIN 81 MG ECTAB PO SCH (08:09)
[2018-01-23] MEDS: LEVOFLOXACIN / D5W 250 MG in PREMIXED IN D5W 50 ML IV SCH (10:32)
[2018-01-23] MEDS ORDERED: LEVOFLOXACIN CONSULT ACTIVE PRN (12:00)
--- NOTE | 2018-01-23 14:58 | Progress Note ---
Subjective Date of Service: Jan 23, 2018. Subjective Pt evaluation today including: conversation w/ patient, physical exam, review of inpatient medication list Pain: no pain PO Intake: adequate Voiding: no voiding problems breathing better today, ambulated to the bathroom and back independently admitted to being short of breath afterwards titrated down to 3L no labs today Problem List Medical Problems: (1) Pneumonia Status: Acute Review of Systems Constitutional: + weakness, + fatigue Respiratory: + cough, + wheezing, + shortness of breath, + dyspnea on exertion All Other Systems: Reviewed and Negative Medications Current Inpatient Medications Medications (Trade) Dose Ordered Sig/Marialuisa Route Start Time Stop Time Status Last Admin Dose Admin Aspirin (Ecotrin Tab) 81 mg DAILY PO 01/22/18 09:00 02/21/18 08:59 01/23/18 08:09 81 MG Furosemide (Lasix Tab) 60 mg DAILY PO 01/22/18 09:00 02/21/18 08:59 01/23/18 08:07 60 MG Isosorbide Mononitrate (Imdur Ext Rel Tab) 30 mg QAM PO 01/22/18 09:00 02/21/18 08:59 01/23/18 08:07 30 MG Pravastatin Sodium (Pravachol Tab) 40 mg DAILY PO 01/22/18 09:00 02/21/18 08:59 01/23/18 08:07 40 MG Prednisone (PredniSONE TAB) 5 mg DAILY PO 01/22/18 09:00 02/21/18 08:59 01/23/18 08:08 5 MG Ranitidine HCl (zANTac TAB) 300 mg BID PO 01/21/18 21:00 02/20/18 20:59 01/23/18 08:08 300 MG Enoxaparin Sodium (Lovenox Inj) 40 mg Q24H SC 01/21/18 21:00 02/20/18 20:59 01/22/18 21:08 40 MG Acetaminophen (Tylenol Tab) 650 mg Q4H PRN PO 01/21/18 16:15 02/20/18 16:14 Al Hydrox/Mg Hydrox/Simethicone (Maalox Max Susp) 15 ml Q4H PRN PO 01/21/18 16:15 02/20/18 16:14 Magnesium Hydroxide (Milk Of Magnesia Susp) 30 ml Q12H PRN PO 01/21/18 16:15 02/20/18 16:14 Ondansetron HCl (Zofran Inj) 4 mg Q6H PRN IV 01/21/18 16:15 02/20/18 16:14 Nitroglycerin (Nitrostat Tab) 0.4 mg UD PRN SL 01/21/18 16:15 02/20/18 16:14 Morphine Sulfate (MoRPHine SULFATE INJ) 2 mg Q30M PRN IV 01/21/18 16:15 02/04/18 16:14 Polyethylene (Miralax Powder Packet) 17 gm DAILY PRN PO 01/21/18 16:15 02/20/18 16:14 Albuterol/ Ipratropium (Duoneb) 3 ml Q6R INH 01/21/18 21:00 02/20/18 20:59 01/23/18 14:21 3 ML Albuterol Sulfate (Ventolin 0.083% 2.5MG/3ML Neb) 2.5 mg Q4H PRN INH 01/21/18 16:15 02/20/18 16:14 Lorazepam (Ativan Tab) 0.5 mg HS PRN PO 01/22/18 10:30 02/21/18 10:29 01/22/18 21:15 0.5 MG Clopidogrel Bisulfate (plAVix TAB) 75 mg Q2D@0900 PO 01/23/18 09:00 02/22/18 08:59 01/23/18 08:09 75 MG Non-Formulary Medication (Non-Formulary Patient'S Own Med) 0.5 ea DAILY PO 01/23/18 09:00 02/22/18 08:59 01/23/18 08:05 0.5 EA Levofloxacin (Levaquin Tab) 250 mg DAILY@11 PO 01/24/18 11:00 01/27/18 11:01 Prednisone (PredniSONE TAB) 40 mg TODAY@1800 ONCE PO 01/23/18 18:00 01/23/18 18:01 Prednisone (PredniSONE TAB) 50 mg DAILY PO 01/24/18 09:00 02/23/18 08:59 Budesonide/ Formoterol Fumarate (Symbicort 160/ 4.5 Inh) 2 puffs BID INH 01/23/18 21:00 02/22/18 20:59 Tiotropium [place] (Spiriva Handihaler Inhaler) 1 puff DAILY INH 01/24/18 09:00 02/23/18 08:59 Levofloxacin (Consult) 1 ea UD PRN N/A 01/23/18 12:00 02/22/18 11:59 Objective Vital Signs Date Time Temp Pulse Resp B/P (MAP) Pulse Ox O2 Delivery O2 Flow Rate FiO2 01/23/18 14:23 101 20 97 Nasal Cannula 3.0 01/23/18 13:00 94 Nasal Cannula 4.0 40 01/23/18 12:44 36.5 107 18 122/66 (84) 94 3.0 01/23/18 11:48 36.5 99 18 98 01/23/18 11:47 98 Nasal Cannula 4.0 01/23/18 10:38 36.6 93 24 138/84 (102) 96 Nasal Cannula 4.0 01/23/18 08:00 98 Nasal Cannula 4.0 01/23/18 07:35 115 20 98 Nasal Cannula 4.0 01/23/18 07:24 36.7 107 18 123/74 (90) 99 Nasal Cannula 4.0 01/23/18 04:00 98 Nasal Cannula 4.0 01/23/18 04:00 36.5 99 22 133/81 (98) 98 Nasal Cannula 4.0 01/23/18 00:00 97 Nasal Cannula 4.0 01/22/18 23:19 36.6 105 20 134/75 (94) 97 Nasal Cannula 4.0 01/22/18 20:00 98 Nasal Cannula 4.0 01/22/18 19:30 104 22 97 Nasal Cannula 4.0 01/22/18 19:02 36.7 93 24 125/74 (91) 98 Nasal Cannula 4.0 01/22/18 16:00 Nasal Cannula 4.0 Humidified Air 01/22/18 15:05 36.4 105 24 136/79 (98) 98 Nasal Cannula 4.0 Physical Exam General Appearance: WD/WN, no apparent distress Eyes: normal inspection, EOMI, sclerae normal ENT: normal ENT inspection, hearing grossly normal, pharynx normal Neck: supple, no adenopathy, no JVD, trachea midline Respiratory/Chest: chest non-tender, no respiratory distress, no accessory muscle use, + decreased breath sounds, + wheezing (less than yesterday) Cardiovascular: no edema, no gallop, no JVD, no murmur, + tachycardia Abdomen: normal bowel sounds, non tender, soft, no organomegaly Extremities: normal range of motion, non-tender, normal inspection, no pedal edema, no calf tenderness, pelvis stable 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 The pt has been progressively SOB x 2 weeks with gradually increasing 02 requirements. She presented to the ER in mild respiratory distress and initially required BiPAP to correct hypoxia. She denies an acute productive cough, chest pain, orthopnea. She is SOB with minimal exertion. - COPD exacerbation more improvement today, will change to Prednisone 50mg daily change Levaquin to 750mg daily, complete 7 days continue nebulizers resume Spiriva and Symbicort transfer to medical floor - Acute and chronic hypoxia acute component resolved, back to 3L today required BIPAP on admission but quickly weaned off - Sinus tachycardia due to albuterol nebs, continue to monitor, only in low 100's - Chronic diastolic and systolic HF examines euvolemic, continue Lasix, Imdur, Metoprolol - CAD: no chest pain, EKG with LBB, continue aspirin, Plavix, statin, Imdur, metoprolol - Insomnia: requesting sleep aide continue Ativan 0.5mg at bedtime, worked well full code Lovenox for prophylaxis transfer to medical
[2018-01-23] MEDS: BUDESONIDE/FORMOTEROL FUMARATE 160/4.5 60 PUFFS/INHALER INH SCH (21:03)
[2018-01-23] MEDS: ENOXAPARIN 40 MG/0.4 ML SYR SC SCH (21:05)
[2018-01-24] VITALS (8 sets, daily range): BP systolic 111–144; BP diastolic 60–83; PULSE 95–118; TEMP 36.4–36.7; O2SAT 91–97
[2018-01-24] MEDS: ALBUT/IPRATROP 3MG/0.5MG NEB 3 ML VIAL INH SCH ×4 (01:45→20:34)
[2018-01-24 05:40] LABS: HEMATOCRIT 35.3 % (37-47); HEMOGLOBIN 11.2 g/dL (12.0-16.0); MEAN CELL VOLUME 93.4 fL (80-100); MEAN CORPUSCULAR HEMOGLOBIN 29.6 pg (25-34); MEAN CORPUSCULAR HGB CONC 31.7 g/dl (32-36); MEAN PLATELET VOLUME 9.9 fL (7.4-10.4); PLATELET COUNT 133 K/uL (130-400); RED CELL DISTRIBUTION WIDTH CV 13.9 % (11.5-14.5); RED CELL DISTRIBUTION WIDTH SD 47.9 fL (36.4-46.3); WHITE BLOOD COUNT 7.46 K/uL (4.8-10.8)
[2018-01-24] MEDS: BUDESONIDE/FORMOTEROL FUMARATE 160/4.5 60 PUFFS/INHALER INH SCH ×2 (07:50→21:22)
[2018-01-24] MEDS: TIOTROPIUM BROMIDE 5 PUFF/90 MCG INH INH SCH (07:50)
[2018-01-24] MEDS: RANITIDINE HCL 150 MG TAB PO SCH ×2 (07:51→21:23)
[2018-01-24] MEDS: PRAVASTATIN SOD 40 MG TAB PO SCH (07:52)
[2018-01-24] MEDS: ASPIRIN 81 MG ECTAB PO SCH (07:54)
[2018-01-24] MEDS: FUROSEMIDE 20 MG TAB PO SCH (07:54)
[2018-01-24] MEDS: BISOPROLOL 5 MG PO SCH (07:54)
[2018-01-24] MEDS: ISOSORBIDE MONONITRATE 30 MG TABCR PO SCH (07:55)
[2018-01-24] MEDS: LEVOFLOXACIN 250 MG TAB PO SCH (11:34)
[2018-01-24] MEDS: ENOXAPARIN 40 MG/0.4 ML SYR SC SCH (21:23)
--- NOTE | 2018-01-24 21:45 | Progress Note ---
Subjective Date of Service: Jan 24, 2018. Subjective Pt evaluation today including: conversation w/ patient, conversation w/ family , physical exam, lab review, review of inpatient medication list Pain: no pain PO Intake: adequate Voiding: no voiding problems patient feeling better, less shortness of breath, ambulating to the bathroom independently coughing, mucous very thick tolerating Levaquin and Prednisone eating well long talk with patient and her family, discussed COPD exacerbation treatment, severity of her disease, goals for oxygen saturation reviewed labs, CBC and Cr stable discussed going home tomorrow with patient and family, they agree with this plan Problem List Medical Problems: (1) Pneumonia Status: Acute Review of Systems Constitutional: + weakness, + fatigue Respiratory: + cough, + sputum (thick, yellow), + dyspnea on exertion All Other Systems: Reviewed and Negative Medications Current Inpatient Medications Medications (Trade) Dose Ordered Sig/Marialuisa Route Start Time Stop Time Status Last Admin Dose Admin Aspirin (Ecotrin Tab) 81 mg DAILY PO 01/22/18 09:00 02/21/18 08:59 01/24/18 07:54 81 MG Furosemide (Lasix Tab) 60 mg DAILY PO 01/22/18 09:00 02/21/18 08:59 01/24/18 07:54 60 MG Isosorbide Mononitrate (Imdur Ext Rel Tab) 30 mg QAM PO 01/22/18 09:00 02/21/18 08:59 01/24/18 07:55 30 MG Pravastatin Sodium (Pravachol Tab) 40 mg DAILY PO 01/22/18 09:00 02/21/18 08:59 01/24/18 07:52 40 MG Prednisone (PredniSONE TAB) 5 mg DAILY PO 01/22/18 09:00 02/21/18 08:59 01/24/18 07:52 5 MG Ranitidine HCl (zANTac TAB) 300 mg BID PO 01/21/18 21:00 02/20/18 20:59 01/24/18 21:23 300 MG Enoxaparin Sodium (Lovenox Inj) 40 mg Q24H SC 01/21/18 21:00 02/20/18 20:59 01/24/18 21:23 40 MG Acetaminophen (Tylenol Tab) 650 mg Q4H PRN PO 01/21/18 16:15 02/20/18 16:14 Al Hydrox/Mg Hydrox/Simethicone (Maalox Max Susp) 15 ml Q4H PRN PO 01/21/18 16:15 02/20/18 16:14 Magnesium Hydroxide (Milk Of Magnesia Susp) 30 ml Q12H PRN PO 01/21/18 16:15 02/20/18 16:14 Ondansetron HCl (Zofran Inj) 4 mg Q6H PRN IV 01/21/18 16:15 02/20/18 16:14 Nitroglycerin (Nitrostat Tab) 0.4 mg UD PRN SL 01/21/18 16:15 02/20/18 16:14 Morphine Sulfate (MoRPHine SULFATE INJ) 2 mg Q30M PRN IV 01/21/18 16:15 02/04/18 16:14 Polyethylene (Miralax Powder Packet) 17 gm DAILY PRN PO 01/21/18 16:15 02/20/18 16:14 Albuterol/ Ipratropium (Duoneb) 3 ml Q6R INH 01/21/18 21:00 02/20/18 20:59 01/24/18 20:34 3 ML Albuterol Sulfate (Ventolin 0.083% 2.5MG/3ML Neb) 2.5 mg Q4H PRN INH 01/21/18 16:15 02/20/18 16:14 Lorazepam (Ativan Tab) 0.5 mg HS PRN PO 01/22/18 10:30 02/21/18 10:29 01/22/18 21:15 0.5 MG Clopidogrel Bisulfate (plAVix TAB) 75 mg Q2D@0900 PO 01/23/18 09:00 02/22/18 08:59 01/23/18 08:09 75 MG Non-Formulary Medication (Non-Formulary Patient'S Own Med) 0.5 ea DAILY PO 01/23/18 09:00 02/22/18 08:59 01/24/18 07:54 0.5 EA Levofloxacin (Levaquin Tab) 250 mg DAILY@11 PO 01/24/18 11:00 01/27/18 11:01 01/24/18 11:34 250 MG Prednisone (PredniSONE TAB) 50 mg DAILY PO 01/24/18 09:00 02/23/18 08:59 01/24/18 07:55 50 MG Budesonide/ Formoterol Fumarate (Symbicort 160/ 4.5 Inh) 2 puffs BID INH 01/23/18 21:00 02/22/18 20:59 01/24/18 21:22 2 PUFFS Tiotropium [place] (Spiriva Handihaler Inhaler) 1 puff DAILY INH 01/24/18 09:00 02/23/18 08:59 01/24/18 07:50 1 PUFF Levofloxacin (Consult) 1 ea UD PRN N/A 01/23/18 12:00 02/22/18 11:59 Objective Vital Signs Date Time Temp Pulse Resp B/P (MAP) Pulse Ox O2 Delivery O2 Flow Rate FiO2 01/24/18 20:36 95 20 93 Nasal Cannula 2.0 01/24/18 16:30 Nasal Cannula 3.0 01/24/18 16:04 36.6 113 18 127/76 (93) 91 Nasal Cannula 2.0 01/24/18 14:03 103 20 92 Nasal Cannula 2.0 01/24/18 08:00 95 Nasal Cannula 3.0 01/24/18 07:17 36.4 114 22 144/83 (103) 95 3.0 01/24/18 07:01 118 24 95 Nasal Cannula 2.0 01/24/18 01:45 98 20 97 Nasal Cannula 3.0 01/24/18 00:00 Nasal Cannula 3.0 01/23/18 23:31 36.4 98 22 121/67 (85) 97 Nasal Cannula 2.0 Physical Exam General Appearance: no apparent distress, + thin Eyes: normal inspection, EOMI, sclerae normal ENT: normal ENT inspection, hearing grossly normal, pharynx normal Neck: supple, no adenopathy, no JVD, trachea midline Respiratory/Chest: chest non-tender, no respiratory distress, no accessory muscle use, + decreased breath sounds (no wheezing) Cardiovascular: regular rate, rhythm, no edema, no gallop, no JVD, no murmur Abdomen: normal bowel sounds, non tender, soft, no organomegaly Extremities: normal range of motion, non-tender, normal inspection, no pedal edema, no calf tenderness, pelvis stable 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, no motor/sensory deficits, alert, normal mood/affect, oriented x 3 Skin: normal color, warm/dry, no rash Lymphatic: no adenopathy Laboratory Results Last 24 Hours Test 01/24/18 05:28 White Blood Count 7.46 K/uL Red Blood Count 3.78 M/uL Hemoglobin 11.2 g/dL Hematocrit 35.3 % Mean Corpuscular Volume 93.4 fL Mean Corpuscular Hemoglobin 29.6 pg Mean Corpuscular Hemoglobin Concent 31.7 g/dl RDW Standard Deviation 47.9 fL RDW Coefficient of Variation 13.9 % Platelet Count 133 K/uL Mean Platelet Volume 9.9 fL Creatinine 1.00 mg/dl Est Creatinine Clear Calc Drug Dose 39.8 ml/min Estimated GFR () 62.1 Estimated GFR (Non- 53.5 Assessment and Plan 77 y/o F CAD, combined CHF, TIA, advanced COPD - 3L 02. The pt has been progressively SOB x 2 weeks with gradually increasing 02 requirements. She presented to the ER in mild respiratory distress and initially required BiPAP to correct hypoxia. She denies an acute productive cough, chest pain, orthopnea. She is SOB with minimal exertion. - COPD exacerbation improving even more today, still short of breath just ambulating to the bathroom patient wants to leave today, discussed that she needs one more night in hospital to make sure she is ready continue Prednisone 50mg daily, would discharge slowly over 2 weeks on discharge due to severe COPD change Levaquin to 250mg daily, complete 7 days, last dose would be on 01/27 continue nebulizers (she has these at home) resume Spiriva and Symbicort plan to d/c to home tomorrow - Acute and chronic hypoxia acute component resolved, back to 2L today long talk about proper saturation goals of 88-92%, she and family understand required BIPAP on admission but quickly weaned off - Sinus tachycardia due to albuterol nebs, continue to monitor, HR lower today in 90's - Chronic diastolic and systolic HF examines euvolemic, continue Lasix, Imdur, Metoprolol - CAD: no chest pain, EKG with LBB, continue aspirin, Plavix, statin, Imdur, metoprolol - Insomnia: requesting sleep aide continue Ativan 0.5mg at bedtime, worked well she would like to continue this on discharge, gets anxious discussed that we could give 7-10 day supply, should follow up with PCP for further dosing full code Lovenox for prophylaxis Plan: d/c tomorrow as long as she continues to remain stable (lung diminished but no wheezing) Levaquin 250mg daily until 01/27 Prednisone 50mg daily with slow taper evaluate for home health/therapy has strong family support, extended family that will check in on her and , provide meals patient felt like she was ready to go today
[2018-01-25] MEDS: ALBUT/IPRATROP 3MG/0.5MG NEB 3 ML VIAL INH SCH ×2 (03:00→07:08)
[2018-01-25 07:08] VITALS: PULSE 96; O2SAT 94
[2018-01-25 08:00] VITALS: O2SAT 94
[2018-01-25] MEDS: TIOTROPIUM BROMIDE 5 PUFF/90 MCG INH INH SCH (08:19)
[2018-01-25] MEDS: BUDESONIDE/FORMOTEROL FUMARATE 160/4.5 60 PUFFS/INHALER INH SCH (08:19)
[2018-01-25] MEDS: ISOSORBIDE MONONITRATE 30 MG TABCR PO SCH (08:20)
[2018-01-25] MEDS: PRAVASTATIN SOD 40 MG TAB PO SCH (08:20)
[2018-01-25] MEDS: RANITIDINE HCL 150 MG TAB PO SCH (08:20)
[2018-01-25] MEDS: ASPIRIN 81 MG ECTAB PO SCH (08:21)
[2018-01-25] MEDS: FUROSEMIDE 20 MG TAB PO SCH (08:21)
[2018-01-25] MEDS: CLOPIDOGREL BISULFATE 75 MG TAB PO SCH (08:22)
[2018-01-25] MEDS: BISOPROLOL 5 MG PO SCH (08:24)
[2018-01-25] MEDS ORDERED: LVQ250 PO (09:46)
[2018-01-25] MEDS ORDERED: PRED10TA PO (09:46)
[2018-01-25] MEDS ORDERED: PRED-301 PO (09:46)
--- NOTE | 2018-01-25 10:05 | Discharge Summary ---
Discharge Summary Date of Service Jan 25, 2018. Discharge Summary Admission Date: Jan 21, 2018 at 16:15 Discharge Date: Jan 25, 2018 Discharge Disposition: Home with services Principal Diagnosis: COPD exacerbation Problems/Secondary Diagnoses: CAD combined CHF TIA advanced COPD on chronic O2 supplement Acute on chronic respiratory failure with hypoxia Insomnia GERD Osteoporosis Procedures: CHEST ONE VIEW PORTABLE HISTORY: Short of breath. COMPARISON: Chest 01/13/2018. FINDINGS: Emphysema. No pneumothorax. The heart remains borderline enlarged. Left basilar linear densities have progressed. No evidence for pulmonary edema. Mild elevation of the left hemidiaphragm is again noted. IMPRESSION: 1. Emphysema. 2. A few linear densities at the left lung base. This favors atelectasis. However, a pneumonia could also have a similar appearance. Electronically signed by: Jovan Kramer M.D. 01/21/2018 11:36 AM Dictated Date/Time: 01/21/2018 11:33 AM The status of this report is Signed. Draft = Not yet reviewed or approved by Radiologist. Signed = Reviewed and approved by Radiologist Medication Reconciliation New Medications: Prednisone Tab (Prednisone) 10 Mg Tab 10 MG PO DAILY for 14 Days, #46 TAB 50 mg x3 days, 40 mg x4 days, 30 mg x3 days, 20 mg x2 days, 10 mg x2 days Levofloxacin (Levofloxacin) 250 Mg Tab 250 MG PO DAILY@11 for 2 Days, #2 TAB Take on 01/26 and 01/27 Changed Medications: Prednisone (Prednisone) 5 Mg Tab 5 MG PO DAILY for 30 Days, #30 TAB (Medication details modified) Resume after Predisone taper Continued Medications: Aspirin (Aspirin Ec) 81 Mg Tab 81 MG PO DAILY Bisoprolol Fumarate (Zebeta) 5 Mg Tab 2.5 MG PO DAILY, TAB Budesonide/Formoterol Fumarate (Symbicort 160/4.5 Inhaler ) Aero 2 PUFFS INH BID, INHALER Clopidogrel (Plavix) 75 Mg Tab 75 MG PO Q2D, TAB Furosemide (Lasix) 40 Mg Tab 60 MG PO DAILY, TAB Ibandronate Sodium (Boniva) 150 Mg Tab 150 MG PO MONTHLY, TAB Isosorbide Mononitrate Ext Rel (Imdur Ext Rel) 30 Mg Ertab 30 MG PO QAM, TAB Multivitamins/Minerals (Mvi With Minerals) Tab 1 TAB PO DAILY, TAB Pravastatin (Pravachol ) 20 Mg Tab 40 MG PO DAILY, TAB Ranitidine (Zantac) 300 Mg Tab 300 MG PO BID, TAB Tiotropium [place] (Spiriva Respimat) 2.5 Mcg/Act Spr 1 PUFF INH DAILY, INHALER [reds2 eye vitamin] () 1 CAP PO BID Referrals At Discharge Follow up Referrals: Family Practice Referral - Within 1 Week with Marly Boateng, DO Discharge Exam Review of Systems: Constitutional: No fever, No chills, No sweats, No weakness, No fatigue Eyes: No worsening of vision ENT: No hearing loss Respiratory: + cough, + dyspnea on exertion, No shortness of breath, No hemoptysis Cardiovascular: No chest pain, No edema, No palpitations Abdomen: No pain, No nausea, No vomiting, No diarrhea, No constipation Musculoskeletal: No joint pain, No muscle pain, No swelling, No calf pain Genitourinary - Female: No dysuria, No hematuria Neurologic: No weakness, No numbness/tingling Psychiatric: No depression symptoms, No anxiety Endocrine: No fatigue Hematologic / Lymphatic: No abnormal bleeding/bruising Integumentary: No rash, No itch, No new/changing skin lesions Physical Exam: General Appearance: no apparent distress, + thin, + pertinent finding (O2 NC 2L) Eyes: normal inspection, PERRL ENT: hearing grossly normal Neck: supple Respiratory/Chest: lungs clear, no respiratory distress, no accessory muscle use, + decreased breath sounds (throughout ) Cardiovascular: regular rate, rhythm Abdomen / GI: normal bowel sounds, non tender, soft Extremities: no calf tenderness, no pedal edema Neurologic/Psychiatric: alert, normal mood/affect, oriented x 3 Skin: normal color, warm/dry, no rash Hospital Course 77 y/o F CAD, combined CHF, TIA, advanced COPD - 3L 02. The pt has been progressively SOB x 2 weeks with gradually increasing 02 requirements. She presented to the ER in mild respiratory distress and initially required BiPAP to correct hypoxia. She denies an acute productive cough, chest pain, orthopnea. She is SOB with minimal exertion. Acute on chronic respiratory failure with hypoxia, COPD exacerbation: - O2 protocol- on chronic 3L O2 supplement at home- requiring 2L at discharge- discussion about proper O2 sats 88-92% - IV Solu Medrol- transitioned to 50 mg PO Prednisone- 2 week taper and discharge then resume 5 mg daily - Levaquin 250 mg daily x7 days - DuoNebs QID and PRN for SOB/wheezing - Continue home inhalers- Spiriva and Symbicort Sinus tachycardia due to Albuterol nebulizers- STABLE Chronic diastolic and systolic CHF- STABLE, CAD- STABLE: Continue Lasix, Imdur, Metoprolol, Zebeta, ASA, Plavix, Pravastatin Insomnia: Ativan 0.5 mg HS PRN- used 1 time while hospitalized on 01/22- will not give script, can further discuss w/ PCP Osteoporosis: Continue monthly Boniva GERD: Continue Zantac DVT prophylaxis: Lovenox SQ daily Code status: LEVEL I, FULL Dispo: Discharge to home w/ [facility] Total Time Spent: Greater than 30 minutes This includes examination of the patient, discharge planning, medication reconciliation, and communication with other providers. Discharge Instructions Please refer to the electronic Patient Visit Report (Discharge Instructions) for additional information. Follow-Up Please follow-up with your PCP within 5-7 days Please follow-up with Dr. Rosales as scheduled Please follow-up/keep all of your subspecialty appointments Additional Copies To Marly Boateng DO
--- NOTE | 2018-01-25 10:05 | Discharge Instructions ---
Discharge Instructions Date of Service Jan 25, 2018. Admission Reason for Admission: Copd Exacerbation Discharge Discharge Diagnosis / Problem: COPD exacerbation Discharge Goals Goal(s): Decrease discomfort, Improve function, Increase independence, Improve disease control, Learn about illness, Diagnostic testing, Therapeutic intervention, Prevent Disease Progression Activity Recommendations Activity Limitations: resume your previous activity . Instructions / Follow-Up Instructions / Follow-Up COPD: Continue home oxygen supplementation As discussed, continue to monitor oxygen saturation level- goals for proper saturation 88-92% Prednisone taper- 50 mg daily on 01/26, 01/27, 01/28 40 mg daily on 01/29, 01/30, 01/31, 02/01 30 mg daily on 02/02, 02/03, 02/04 20 mg daily on 02/05, 02/06 10 mg daily on 02/07, 02/08 Then resume chronic Prednisone 5 mg daily Continue home inhalers and nebulizer treatment Levaquin 250 mg daily on 01/26 and 01/27 Resume all other regular home medications FOLLOW-UPS: Please follow-up with your PCP within 5-7 days Please follow-up with Dr. Rosales as scheduled Please follow-up/keep all of your subspecialty appointments Current Hospital Diet Patient's current hospital diet: AHA Diet (Heart Healthy) Discharge Diet Recommended Diet: AHA Diet (Heart Healthy) Pending Studies Studies pending at discharge: no Medical Emergencies . Who to Call and When: Medical Emergencies: If at any time you feel your situation is an emergency, please call 911 immediately. . Non-Emergent Contact Non-Emergency issues call your: Primary Care Provider, Pediatric Genetic Counselor Call Non-Emergent contact if: you have any medication questions . . "Provider Documentation" section prepared by Cleo Mcgee. .
[2018-01-25 10:54] VITALS: BP 111/60; PULSE 96; TEMP 36.7; O2SAT 94
[2018-01-25] MEDS: LEVOFLOXACIN 250 MG TAB PO SCH (11:48)
== END 2018-01-25 12:25 | disposition home health service (06) | DRG 190 ==
LOC: EDBD 10:56 → C.EDC 10:57 → C.2T 16:15 → ENRESERV 16:23 → C.MS2W 01-23 12:48
PROVIDERS: ADMIT Internal Medicine; ATTEND Hospitalist
DX: J44.1 Chronic obstructive pulmonary disease with (acute) exacerbation (principal); J96.21 Acute and chronic respiratory failure with hypoxia; I50.42 Chronic combined systolic (congestive) and diastolic (congestive) heart failure; R00.0 Tachycardia, unspecified; T48.6X5A Adverse effect of antiasthmatics, initial encounter; I44.7 Left bundle-branch block, unspecified; I25.10 Atherosclerotic heart disease of native coronary artery without angina pectoris; K21.9 Gastro-esophageal reflux disease without esophagitis; M81.0 Age-related osteoporosis without current pathological fracture; G47.00 Insomnia, unspecified; Z99.81 Dependence on supplemental oxygen; Z86.73 Personal history of transient ischemic attack (TIA), and cerebral infarction without residual deficits; Z87.891 Personal history of nicotine dependence; Z79.02 Long term (current) use of antithrombotics/antiplatelets; Z79.51 Long term (current) use of inhaled steroids; Z79.52 Long term (current) use of systemic steroids; Z79.82 Long term (current) use of aspirin; Z79.83 Long term (current) use of bisphosphonates; Z79.899 Other long term (current) drug therapy

== ENCOUNTER → 2018-02-05 | Outpatient (CLI) | payer OTHER, BC ==
[~2018-02-05] MED LIST changes: +LVQ250 PO; +PRED10TA PO
--- NOTE | 2018-02-05 15:46 | DIAGNOSTIC IMAGING REPORT ---
VENOUS DOPPLER LWR EXT BILA CLINICAL HISTORY: 77 years-old Female presenting with M79.89 Right leg swelling. TECHNIQUE: Real-time grayscale and color and spectral Doppler ultrasound imaging of the veins of the bilateral lower extremities was performed. Compression and augmentation were also utilized. COMPARISON: None. FINDINGS: Right: Common femoral vein: Patent. Greater saphenous vein: Patent. Deep femoral vein: Patent. Femoral vein: Patent. Popliteal vein: Patent. Calf veins: Patent. Left: Common femoral vein: Patent. Greater saphenous vein: Patent. Deep femoral vein: Patent. Femoral vein: Patent. Popliteal vein: Patent. Calf veins: Patent. Other: None. IMPRESSION: No evidence of deep venous thrombosis. Electronically signed by: Dangelo Verdugo M.D. 02/05/2018 3:45 PM Dictated Date/Time: 02/05/2018 3:44 PM
[2018-02-05 16:28] LABS: HEMATOCRIT 38.2 % (37-47); HEMOGLOBIN 12.3 g/dL (12.0-16.0); IG# 0.05 K/uL (0.00-0.02); LYMPH % 3.4 %; LYMPH ABS # 0.37 K/uL (1.2-3.4); MEAN CELL VOLUME 93.4 fL (80-100); MEAN CORPUSCULAR HEMOGLOBIN 30.1 pg (25-34); MEAN CORPUSCULAR HGB CONC 32.2 g/dl (32-36); MEAN PLATELET VOLUME 9.7 fL (7.4-10.4); MONO % 2.1 %; MONO ABS # 0.23 K/uL (0.11-0.59); NEUT ABS # 10.24 K/uL (1.4-6.5); PLATELET COUNT 203 K/uL (130-400); RED CELL DISTRIBUTION WIDTH CV 14.6 % (11.5-14.5); WHITE BLOOD COUNT 10.89 K/uL (4.8-10.8)
[2018-02-05 17:17] LABS: PTT PATIENT 20.1 SECONDS (21.0-31.0)
== END | disposition home or self-care (01) ==
LOC: C.ULTR 14:36
PROVIDERS: ATTEND Internal Medicine Pulmonary Disease
DX: M79.89 Other specified soft tissue disorders (principal); R04.0 Epistaxis; R58 Hemorrhage, not elsewhere classified